=== PATIENT | female | born 1980 | race Asian ===

== ENCOUNTER 2021-02-14 17:53 | Emergency (ER) | payer OTHER, SELFPAY ==
[2021-02-14] VITALS (14 sets, daily range): BP systolic 183–220; BP diastolic 86–120; PULSE 74–96; RESP 14–29; TEMP 36.7; O2SAT 94–99; BMI 44.2
--- NOTE | 2021-02-14 18:53 | DI.RAD.S_ITS ---
PROCEDURE: XR CHEST 1V INDICATIONS: Chest pain TECHNIQUE: One view of the chest was acquired. COMPARISON: None. FINDINGS: Surgical changes and devices: None. Lungs and pleura: Lungs are clear. No pleural effusions or pneumothorax. Mediastinum: Mediastinal contours appear normal. Heart size is normal. Bones and chest wall: No suspicious bony lesions. Overlying soft tissues appear unremarkable. IMPRESSION: No acute cardiopulmonary process demonstrated radiographically. Dictated by: Nathan Moody M.D. on 02/14/2021 at 19:16 Approved by: Nathan Moody M.D. on 02/14/2021 at 19:16
--- NOTE | 2021-02-14 19:04 | ED_ITS ---
HPI - General Adult General Chief complaint: Hypertension Stated complaint: High Blood Pressure Time Seen by Provider: 02/14/21 19:04 Source: patient Mode of arrival: Ambulatory Limitations: no limitations History of Present Illness HPI narrative: 40-year-old woman with a history of hypertension but she has not taken any blood pressure medications for an extended period of time. She is not sure when she last saw her doctor, Dr. Almazan, had routine blood work or last took any meds. She was having a routine medical screening exam at her work, tried and seafood, and was found to be significantly hypertensive 220/110 on 1 side and 220/100 on the other side. She is otherwise asymptomatic with this she describes occasional headaches but nothing that seems to specifically bother her. She has had no chest pain, palpitations, exertional dyspnea, orthopnea, increased lower extremity edema. She does not know if she has gained weight and does not know when the last time she weighed herself was. She has had no nausea, vomiting, diarrhea, numbness or tingling. Blood pressure remains significantly elevated on arrival in the emergency room and she remains asymptomatic. Related Data Home Medications Medication Instructions Recorded Confirmed cholecalciferol (vitamin D3) 50 2,000 unit PO QDAY #0 04/04/17 mcg (2,000 unit) capsule (Vitamin D3) hydrochlorothiazide 25 mg tablet 25 mg PO QDAY #0 04/04/17 lisinopril 40 mg tablet 40 mg PO QDAY #0 04/04/17 multivitamin-iron 9 mg-folic acid 1 tab PO QDAY #0 04/04/17 400 mcg-calcium and minerals tablet (Thera M Plus (ferrous fumarate)) Previous Rx's Medication Instructions Recorded lisinopril 20 2 tab PO DAILY 30 Days #60 tab 02/14/21 mg-hydrochlorothiazide 12.5 mg tablet Allergies Allergy/AdvReac Type Severity Reaction Status Date / Time No Known Drug Allergies Allergy Verified 02/14/21 18:24 Review of Systems Review of Systems Narrative: Remainder of complete review of systems is otherwise unremarkable except for that included in the HPI. Patient History Social History Smoking Status: Unknown if ever smoked Smoking Status: Unknown if ever smoked alcohol intake frequency: holidays/special occasions only Substance Use Type: does not use Exam Narrative Exam Narrative: General: Healthy appearing, in no acute distress. Able to give a complete and coherent history. Well-nourished well-developed HEENT: Moist mucous membranes, normal sclera with reactive pupils, Neck: No JVD, supple Respiratory: Lungs are clear to auscultation, no wheezing no rales no rhonchi. Full and symmetrical air movement Cardiac: Regular rate and rhythm no murmurs no bruits Abdomen: Soft, nontender, good bowel tones, no flank pain Skin: Warm and dry, no rashes Neurologic: Grossly neurologically intact with no obvious asymmetries or abnormalities Extremities: No trauma, well perfused Psych: Cooperative, appropriate affect but poor overall inside Initial Vital Signs Initial Vital Signs: Vital Signs Temperature 98.1 F 02/14/21 18:24 Pulse Rate 80 02/14/21 18:24 Respiratory Rate 14 02/14/21 18:24 Blood Pressure 192/120 H 02/14/21 18:24 Pulse Oximetry 98 02/14/21 18:24 Course Orders Ordered: ED Orders 02/14/21 18:53 XR chest 1V Stat EKG-12 Lead Stat 02/14/21 19:35 Complete Blood Count AUTO DIFF Stat Comprehensive Metabolic Panel Stat Lipase Stat Magnesium Stat Troponin & CK Cardiac Panel Stat Discontinued Medications COVID-19 Vacc Ad26-S Recombinant (JSN) (PF) (Covid-19 Vacc, Ad26(Pete)/Pf 0.5 Ml) 0.5 ml IM .ONCE ONE Stop: 02/14/21 19:32 Last Admin: 02/14/21 19:50 Dose: Not Given Documented by: SHANTA Hydralazine HCl (Hydralazine 20 Mg/Ml Vial) 20 mg IM NOW ONE Stop: 02/14/21 20:53 Last Admin: 02/14/21 21:26 Dose: 20 mg Documented by: GEO Hydrochlorothiazide (Hydrochlorothiazide 25 Mg Tablet) 25 mg PO NOW ONE Stop: 02/14/21 19:30 Last Admin: 02/14/21 19:57 Dose: 25 mg Documented by: SHANTA Lisinopril (Lisinopril 20 Mg Tablet) 40 mg PO NOW ONE Stop: 02/14/21 19:30 Last Admin: 02/14/21 19:57 Dose: 40 mg Documented by: SHANTA Vital Signs Vital signs: Vital Signs - 8 hr 02/14/21 19:30 02/14/21 19:57 02/14/21 20:00 Pulse Rate 84 85 85 Respiratory Rate 29 H 26 H Blood Pressure 213/118 H Pulse Oximetry 99 99 02/14/21 20:14 02/14/21 20:17 02/14/21 20:30 Pulse Rate 79 77 75 Respiratory Rate 23 22 Blood Pressure 200/104 H 200/104 H 200/113 H Pulse Oximetry 98 99 98 02/14/21 21:00 02/14/21 21:21 02/14/21 21:22 Pulse Rate 74 96 H 91 H Respiratory Rate 23 26 H Blood Pressure 195/100 H 220/113 H Pulse Oximetry 98 94 96 02/14/21 21:30 02/14/21 22:00 02/14/21 22:27 Pulse Rate 78 89 95 H Respiratory Rate 24 25 H 16 Blood Pressure 212/109 H 183/92 H 185/86 H Pulse Oximetry 98 98 97 Medical Decision Making Lab Data Result diagrams: 02/14/21 19:35 02/14/21 19:35 Labs: Lab Results 02/14/21 02/14/21 Range/Units 19:35 19:35 WBC 11.3 H (4.5-11.0) X10^3/uL RBC 4.85 (4.0-5.2) X10^6/uL Hgb 11.0 L (12.0-16.0) g/dL Hct 35.4 L (36-46) % MCV 73.0 L (80-100) fL MCH 22.7 L (26-34) PG MCHC 31.1 (30-36) % RDW 16.0 H (11.6-14.8) % Plt Count 317 (150-400) X10^3/uL Neut % (Auto) 66.7 (50-75) % Lymph % (Auto) 23.9 L (25-40) % [place] % (Auto) 5.4 (3-14) % Eos % (Auto) 3.3 (2-4) % Baso % (Auto) 0.7 (0-2) % Neut # (Auto) 7500 H (4010-6228) /uL Lymph # (Auto) 2700 (7352-8997) /uL [place] # (Auto) 600 (0-900) /uL Eos # (Auto) 400 (0-450) /uL Baso # (Auto) 100 (0-100) /uL Sodium 137 (137-145) mmol/L Potassium 3.7 (3.4-5.1) mmol/L Chloride 102 (98-107) mmol/L Carbon Dioxide 27 (22-32) mmol/L BUN 12 (7-17) mg/dL Creatinine 0.67 (0.52-1.04) mg/dL Estimated GFR > 60.0 (>60) mL/min BUN/Creatinine Ratio 17.9 (6-22) Glucose 111 H (70-100) mg/dL Calcium 8.7 (8.4-10.2) mg/dL Magnesium 2.0 (1.6-2.3) mg/dL Total Bilirubin 0.6 (0.2-1.3) mg/dL AST 40 H (14-36) IU/L ALT 40 H (<35) IU/L Alkaline Phosphatase 82 (38-126) U/L Total Creatine Kinase 113 (30-135) U/L CK-MB (CK-2) 1.00 (<2.37) ng/mL CK-MB (CK-2) Rel Index 0.9 L (1.5-5.0) % Troponin I < 0.012 (0.01-0.034) ng/mL Total Protein 7.5 (6.3-8.2) g/dL Albumin 4.1 (3.5-5.0) g/dL Globulin 3.4 (1.7-4.1) g/dL Albumin/Globulin Ratio 1.2 (1.0-2.8) Lipase 38 (23-300) U/L Imaging Data Chest x-ray: Radiologist's Impression: FINDINGS: Surgical changes and devices: None. Lungs and pleura: Lungs are clear. No pleural effusions or pneumothorax. Mediastinum: Mediastinal contours appear normal. Heart size is normal. Bones and chest wall: No suspicious bony lesions. Overlying soft tissues appear unremarkable. IMPRESSION: No acute cardiopulmonary process demonstrated radiographically. Dictated by: Nathan Moody M.D. on 02/14/2021 at 19:16 ECG Data Interpretation: Sinus rhythm at a rate of 81 Normal intervals, normal axis No significant left ventricular hypertrophy pattern No acute ischemic changes MDM Narrative Medical decision making narrative: 40-year-old woman with a history of hypertension has not medications for number of months. Was noted to have fairly dramatic and completely asymptomatic hypertension with a screening test done at work. She comes in today at request from her work for further evaluation. No neurologic pulmonary or cardiac symptoms. She is given 40 mg of lisinopril, 25 mg of hydrochlorothiazide and 20 mg of IM hydralazine. There is no evidence of stroke or acute coronary syndrome. Blood pressure was beginning to trend down. She tolerated the medications well. She is discharged home with instructions to start 40 mg of lisinopril and 25 mg of hydrochlorothiazide daily. Asked her to keep track of her blood pressure readings and follow-up with Dr. Almazan. Reiterated the importance of keeping her blood pressure controlled to avoid long-term consequences including heart attack, stroke and renal failure. Questions are answered and she is safe for home discharge Discharge Plan Departure Patient Disposition: Home Clinical Impression: Hypertension Qualifiers: Hypertension type: primary hypertension Qualified Code(s): I10 - Essential (primary) hypertension Instructions: DI for High Blood Pressure Activity Restrictions/Additional Instructions: Thank you for coming in today Your blood pressure was dangerously high. You need to be back on your blood pressure medications. In the emergency room I restarted the lisinopril at 40 mg and hydrochlorothiazide at 25 mg. You had no symptoms of a stroke, no sign of a heart attack on your EKG and her blood work was reassuring. You need to schedule an appointment with Dr. Almazan to follow-up on your blood pressure. I have given you a prescription for a combination pill of lisinopril 20 mg and hydrochlorothiazide 12.5 mg. You will need to take 2 of these every morning. Please continue to take the blood pressure medication daily. It would be very helpful for Dr. Almazan if you are able to take your blood pressure at least a couple of times a week so we can tell how your body is responding to restarting the blood pressure medication Thank you for letting us give you your COVID shot today Prescriptions: New lisinopril-hydrochlorothiazide 20-12.5 mg tablet 2 tab PO DAILY 30 Days Qty: 60 RF: 3 No Action lisinopril 40 MG tablet 40 mg PO QDAY Qty: 0 RF: 0 hydrochlorothiazide 25 MG tablet 25 mg PO QDAY Qty: 0 RF: 0 cholecalciferol (vitamin D3) [Vitamin D3] 2,000 UNIT capsule 2,000 unit PO QDAY Qty: 0 RF: 0 [id number]-calcium-mins [Thera M Plus (ferrous fumarat)] 1 EACH tablet 1 tab PO QDAY Qty: 0 RF: 0 Referrals: Isabella Almazan MD [Primary Care Provider] -
[2021-02-14 19:43] LABS: Add Manual Diff / Slide Review NO; Basophils Absolute Auto 100 /uL (0-100); Basophils Percent Auto 0.7 % (0-2); Eosinophils Absolute Auto 400 /uL (0-450); Eosinophils Percent Auto 3.3 % (2-4); Hematocrit 35.4 % (36-46); Lymphocytes Absolute Auto 2700 /uL (1100-4500); Lymphocytes Percent Auto 23.9 % (25-40); Mean Corpuscular HGB Conc 31.1 % (30-36); Mean Corpuscular Hemoglobin 22.7 PG (26-34); Monocytes Absolute Auto 600 /uL (0-900); Monocytes Percent Auto 5.4 % (3-14); Neutrophils Absolute Auto 7500 /uL (1500-7000); Neutrophils Percent Auto 66.7 % (50-75); Platelet Count 317 X10^3/uL (150-400); Red Blood Cell Count 4.85 X10^6/uL (4.0-5.2); White Blood Cell Count 11.3 X10^3/uL (4.5-11.0)
[2021-02-14 19:55] LABS: Alanine Aminotransferase 40 IU/L (<35); Albumin 4.1 g/dL (3.5-5.0); Albumin Globulin Ratio 1.2 (1.0-2.8); Alkaline Phosphatase 82 U/L (38-126); Aspartate Aminotransferase 40 IU/L (14-36); BUN Creatinine Ratio 17.9 (6-22); Bilirubin Total 0.6 mg/dL (0.2-1.3); Blood Urea Nitrogen 12 mg/dL (7-17); Calcium 8.7 mg/dL (8.4-10.2); Carbon Dioxide 27 mmol/L (22-32); Chloride 102 mmol/L (98-107); Creatine Kinase 113 U/L (30-135); Estimated Glomerular Filt Rate > 60.0 mL/min (>60); Globulin 3.4 g/dL (1.7-4.1); Glucose 111 mg/dL (70-100); HEMOLYSIS < 15 (0-50); Lipase 38 U/L (23-300); Potassium 3.7 mmol/L (3.4-5.1); Sodium 137 mmol/L (137-145); Total Protein 7.5 g/dL (6.3-8.2)
[2021-02-14] MEDS: lisinopriL 20 MG TABLET 40 MG PO (19:57)
[2021-02-14] MEDS: hydroCHLOROthiazide 25 MG TABLET PO (19:57)
[2021-02-14 20:07] LABS: Troponin I < 0.012 ng/mL (0.01-0.034)
[2021-02-14 20:10] LABS: CKMB % Relative Index 0.9 % (1.5-5.0)
[2021-02-14] MEDS: HYDRALAZINE 20 MG/ML VIAL IM (21:26)
== END 2021-02-14 22:30 | disposition home or self-care (01) ==
PROVIDERS: Emergency Provider Emergency Medicine; Family Provider Family Medicine; PCP Family Medicine
DX: I10 Essential (primary) hypertension (principal); R07.9 Chest pain, unspecified
CPT/HCPCS: 36415; 71045; 80053; 82550; 82553; 83690; 83735; 84484; 85025; 93005; 93010; 96372; 99284; J0360

== ENCOUNTER → 2022-05-26 11:51 | Outpatient (CLI) | payer OTHER, SELFPAY ==
--- NOTE | 2022-05-26 11:57 | DI.RAD.S_ITS ---
PROCEDURE: XR CHEST 2V INDICATIONS: ACUTE COUGH TECHNIQUE: 2 views of the chest were acquired. COMPARISON: [facility], , XR CHEST 1V, 02/14/2021, 18:55. FINDINGS: Surgical changes and devices: None. Lungs and pleura: Lungs are clear. No pleural effusions or pneumothorax. Mediastinum: Mediastinal contours are normal. Heart size is stable. Bones and chest wall: No suspicious bony abnormalities. Soft tissues appear unremarkable. IMPRESSION: No acute cardiopulmonary abnormality. Approved by: Cortez De León M.D. on 05/26/2022 at 12:17
== END ==
PROVIDERS: Family Provider Family Medicine; PCP Family Medicine; Referring Provider Registered Nurse; Visit Provider Registered Nurse
DX: R05.1 Acute cough (principal)
CPT/HCPCS: 71046

== ENCOUNTER 2022-09-07 11:18 | Observation (INO) | payer OTHER, SELFPAY ==
[2022-09-07] VITALS (50 sets, daily range): BP systolic 138–222; BP diastolic 75–122; PULSE 89–121; RESP 18–36; TEMP 37.2; O2SAT 87–100; BMI 40.4
[2022-09-07] MEDS: ALBUTEROL/IPRATROPIUM 3 ML AMPUL INH ×3 (11:26→11:51)
--- NOTE | 2022-09-07 11:28 | DI.RAD.S_ITS ---
PROCEDURE: XR CHEST 1V INDICATIONS: Shortness of breath TECHNIQUE: One view of the chest was acquired. COMPARISON: [facility], CR, XR CHEST 2V, 05/26/2022, 12:03. FINDINGS: Surgical changes and devices: None. Lungs and pleura: Lungs are clear. No pleural effusions or pneumothorax. Mediastinum: Mediastinal contours appear normal. Heart size is normal. Bones and chest wall: No suspicious bony lesions. Overlying soft tissues appear unremarkable. IMPRESSION: No evidence acute pulmonary process. Dictated by: Phillip Acevedo M.D. on 09/07/2022 at 12:01 Approved by: Phillip Acevedo M.D. on 09/07/2022 at 12:01
--- NOTE | 2022-09-07 11:33 | ED.SOB ---
HPI - SOB/Dyspnea General Chief Complaint: Shortness of Breath/Dyspnea Stated Complaint: Asthma Time Seen by Provider: 09/07/22 11:26 Source: patient Mode of arrival: Ambulatory Limitations: no limitations History of Present Illness HPI Narrative: This is a 41-year-old female with history of hypertension and asthma. Patient presents with complaint of shortness of breath. She denies cold, cough or congestion recently. No fevers. She has tightness in her chest. Denies any pain. No nausea or vomiting no other GI or urinary symptoms. No new swelling in extremities. Patient states she may have been hospitalized once before she states it was here but I do not have that available in our system. She does have 1 prior visit for hypertension in the past. Patient takes lisinopril, hydrochlorothiazide and uses albuterol as her home medications. She is been using her inhaler. She is not on a steroid inhaler. She does not recall being on any oral steroids in the past. She denies any prior intubations. No tobacco, alcohol or illicit. She states her only prior surgeries are . Patient gives majority of history herself but has family that also supplements history at bedside. Related Data Home Medications Medication Instructions Recorded Confirmed cholecalciferol (vitamin D3) 50 2,000 unit PO QDAY ##0 04/04/17 mcg (2,000 unit) capsule (Vitamin D3) hydrochlorothiazide 25 mg tablet 25 mg PO QDAY ##0 04/04/17 lisinopril 40 mg tablet 40 mg PO QDAY ##0 04/04/17 multivitamin-iron 9 mg-folic acid 1 tab PO QDAY ##0 04/04/17 400 mcg-calcium and minerals tablet (Thera M Plus (ferrous fumarate)) Previous Rx's Medication Instructions Recorded lisinopril 20 2 tab PO DAILY 1 month #60 tabs 02/14/ mg-hydrochlorothiazide 12.5 mg tablet Allergies Allergy/AdvReac Type Severity Reaction Status Date / Time No Known Drug Allergies Allergy Verified 09/07/22 11:30 Review of Systems Review of Systems ROS Unobtainable: All systems reviewed & are unremarkable except as noted in HPI and below Patient History Social History Smoking Status: Unknown if ever smoked Smoking Status: Unknown if ever smoked alcohol intake frequency: holidays/special occasions only Substance Use Type: does not use Exam Narrative Exam Narrative: GEN: well nourished, well appearing e-mail, alert and oriented x 3, patient appears to be in mild distress. HEENT: Atraumatic, pupils are equal round reactive to light, extraocular movements are intact, nares are clear, there is no conjunctival pallor. Throat is clear without any exudates, erythema, tonsillar enlargement or uvular deviation HEART: Regular rate and rhythm without murmur, clicks, rubs. Pulses are equal in upper and lower extremities LUNGS:Lungs decreased posteriorly, patient has expiratory wheeze bilaterally, tachypnea, patient is able to speak in 3 or 4 word sentences, no rales, crackles, chest moves symmetrically ABD:bowel sounds normal, soft, non-tender, no guarding, rebound, rigidity, no masses noted, no hepatosplenomegaly :No CVA tenderness MSCL: Non-tender, no muscle atrophy, muscles strength 5/5 upper and lower extremities, full range of motion, normal gait NEURO:CN 2-12 intact, sensation normal Initial Vital Signs Initial Vital Signs: Vital Signs Pulse Oximetry 88 L 09/07/22 11:23 Course Orders Ordered: ED Orders 09/07/22 11:28 XR chest 1V Stat Measure peak expiratory flow ONCE RT Consult Eval and Treat NOW 09/07/22 11:30 COVID19 -Nasal RAPID Stat Complete Blood Count AUTO DIFF Stat Comprehensive Metabolic Panel Stat D Dimer Stat Lactate (Lactic Acid) Stat NT-proBNP (BNP-Adult 18+) Stat Prothrombin Time INR Stat Troponin I Stat 09/07/22 12:30 EKG-12 Lead Stat 09/07/22 13:45 Respiratory Panel (Film Array) Stat Acetaminophen (Acetaminophen 325 Mg Tablet) 650 mg PO Q6H PRN PRN Reason: Fever/Mild Pain (1-3) Hydrocodone Bitart/Acetaminophen (Hydrocodone/Acet 5/325 Tablet) 1 tab PO Q4H PRN PRN Reason: Pain, Moderate (4-6) Albuterol/Ipratropium (Albuterol/Ipratropium 3 Ml Ampul) 3 ml INH RTQ4HR PRN PRN Reason: Shortness Of Breath Amlodipine Besylate (Amlodipine 5 Mg Tablet) 10 mg PO DAILY CRISTINO Enoxaparin Sodium (Enoxaparin 40 Mg/0.4 Ml Syringe) 40 mg SUBCUT DAILY [facility] Hydralazine HCl (Hydralazine 20 Mg/Ml Vial) 10 mg IV Q6HR PRN PRN Reason: Hypertension SBP >160 Metformin HCl (Metformin Hcl 500 Mg Tablet) 500 mg PO 0800,1700 [facility] Naloxone HCl (Naloxone 0.4 Mg/Ml Vial) 0.2 mg IV Q2MIN PRN PRN Reason: Opiate Reversal Prednisone (Prednisone 20 Mg Tablet) 40 mg PO DAILY CRISTINO Discontinued Medications Albuterol (Albuterol 2.5 Mg/3 Ml Neb (Adult)) 20 mg INH NOW ONE Stop: 09/07/22 12:33 Last Admin: 09/07/22 12:39 Dose: 20 mg Documented By: SAT Albuterol (Albuterol 2.5 Mg/3 Ml Neb (Adult)) 5 mg INH NOW ONE Stop: 09/07/22 15:23 Last Admin: 09/07/22 15:24 Dose: 5 mg Documented By: NL Albuterol/Ipratropium (Albuterol/Ipratropium 3 Ml Ampul) 3 ml INH Q20M CRISTINO Stop: 09/07/22 12:11 Last Admin: 09/07/22 11:51 Dose: 3 ml Documented By: Admin: 09/07/22 11:38 Dose: 3 ml Documented By: Admin: 09/07/22 11:26 Dose: 3 ml Documented By: ANASTASIA Methylprednisolone (Methylprednisolone 125 Mg/2 Ml Vial) 125 mg IV NOW ONE Stop: 09/07/22 11:34 Last Admin: 09/07/22 11:48 Dose: 125 mg Documented By: CTS Vital Signs Vital signs: Vital Signs - 8 hr 09/07/22 11:26 09/07/22 11:23 09/07/22 11:24 Temperature 98.9 F Pulse Rate 107 H Respiratory Rate 36 H Blood Pressure 186/110 H 186/110 H Pulse Oximetry 87 L 88 L Oxygen Delivery Method Room Air 09/07/22 11:24 09/07/22 11:30 09/07/22 11:25 Temperature Pulse Rate 105 H 95 H 92 H Respiratory Rate 24 Blood Pressure Pulse Oximetry 91 97 92 Oxygen Delivery Method Room Air 09/07/22 11:38 09/07/22 11:51 09/07/22 12:28 Temperature Pulse Rate 89 94 H Respiratory Rate 24 24 Blood Pressure 192/110 H Pulse Oximetry 98 97 Oxygen Delivery Method Room Air Room Air 09/07/22 11:30 09/07/22 11:45 09/07/22 11:45 Temperature Pulse Rate 93 H Respiratory Rate Blood Pressure 187/116 H 185/118 H Pulse Oximetry 97 Oxygen Delivery Method 09/07/22 12:00 09/07/22 12:00 09/07/22 12:15 Temperature Pulse Rate 93 H 100 H Respiratory Rate Blood Pressure 192/122 H Pulse Oximetry 100 97 Oxygen Delivery Method 09/07/22 12:15 09/07/22 12:27 09/07/22 12:27 Temperature Pulse Rate 103 H Respiratory Rate Blood Pressure 222/106 H 192/110 H Pulse Oximetry 93 Oxygen Delivery Method 09/07/22 12:30 09/07/22 12:30 09/07/22 12:45 Temperature Pulse Rate 105 H 90 Respiratory Rate Blood Pressure 183/109 H Pulse Oximetry 94 95 Oxygen Delivery Method 09/07/22 12:45 09/07/22 13:00 09/07/22 13:00 Temperature Pulse Rate 105 H Respiratory Rate Blood Pressure 170/106 H 182/110 H Pulse Oximetry 93 Oxygen Delivery Method 09/07/22 13:15 09/07/22 13:15 09/07/22 13:30 Temperature Pulse Rate 100 H Respiratory Rate Blood Pressure 181/108 H 186/111 H Pulse Oximetry 100 Oxygen Delivery Method 09/07/22 13:30 09/07/22 13:45 09/07/22 13:45 Temperature Pulse Rate 109 H 109 H Respiratory Rate 24 Blood Pressure 185/99 H Pulse Oximetry 100 100 Oxygen Delivery Method 09/07/22 14:00 09/07/22 14:00 09/07/22 15:20 Temperature Pulse Rate 115 H 121 H Respiratory Rate 31 H Blood Pressure 176/93 H Pulse Oximetry 100 89 L Oxygen Delivery Method 09/07/22 15:24 Temperature Pulse Rate 114 H Respiratory Rate 24 Blood Pressure Pulse Oximetry 94 Oxygen Delivery Method Room Air MDM - SOB/Dyspnea Lab Data 09/07/22 11:30 09/07/22 11:30 Labs: Lab Results 09/07/22 09/07/22 09/07/22 Range/Units 11:30 11:30 11:30 WBC 13.8 H (4.5-11.0) X10^3/uL RBC 5.11 (4.0-5.2) X10^6/uL Hgb 11.7 L (12.0-16.0) g/dL Hct 37.6 (36-46) % MCV 73.6 L (80-100) fL MCH 22.8 L (26-34) PG MCHC 31.0 (30-36) % RDW 16.5 H (11.6-14.8) % Plt Count 369 (150-400) X10^3/uL Neut % (Auto) 71.2 (50-75) % Lymph % (Auto) 18.0 L (25-40) % [place] % (Auto) 4.0 (3-14) % Eos % (Auto) 5.8 H (2-4) % Baso % (Auto) 1.0 (0-2) % Neut # (Auto) 9900 H (7350-8244) /uL Lymph # (Auto) 2500 (3499-6277) /uL [place] # (Auto) 500 (0-900) /uL Eos # (Auto) 800 H (0-450) /uL Baso # (Auto) 100 (0-100) /uL PT 11.5 (10.1-12.7) SECONDS INR 1.0 (0.9-1.3) D-Dimer (<500) ng/ml Sodium 136 L (137-145) mmol/L Potassium 3.7 (3.4-5.1) mmol/L Chloride 101 (98-107) mmol/L Carbon Dioxide 27 (22-32) mmol/L BUN 9 (7-17) mg/dL Creatinine 0.54 (0.52-1.04) mg/dL Estimated GFR > 60 (>60) mL/min BUN/Creatinine Ratio 16.7 (6-22) Glucose 160 H (70-100) mg/dL Lactate (0.7-2.1) mmol/L Calcium 8.5 (8.4-10.2) mg/dL Total Bilirubin 0.3 (0.2-1.3) mg/dL AST 26 (14-36) IU/L ALT 38 H (<35) IU/L Alkaline Phosphatase 104 (38-126) U/L Troponin I < 0.012 (0.01-0.034) ng/mL NT-Pro-B Natriuret Pep 14 (<125) pg/mL Total Protein 8.3 H (6.3-8.2) g/dL Albumin 4.3 (3.5-5.0) g/dL Globulin 4.0 (1.7-4.1) g/dL Albumin/Globulin Ratio 1.1 (1.0-2.8) Chlamy pneumoniae PCR (Not Detect) Adenovirus (PCR) (Not Detect) B. pertussis DNA (PCR) (Not Detecte) B.parapertussis DNA PCR (Not Detecte) Coronavirus OC43 (PCR) (Not Detect) Coronavirus HKU1 (PCR) (Not Detect) Coronavirus 229E (PCR) (Not Detect) SARS-CoV-2 (PCR) (Negative) Coronavirus NL63 (PCR) (Not Detect) Human Metapneumovir PCR (Not Detect) Influenza Type A (PCR) (Not Detect) Influenza Type B (PCR) (Not Detect) M. pneumoniae (PCR) (Not Detect) Parainfluenza 1 (PCR) (Not Detect) Parainfluenza 2 (PCR) (Not Detect) Parainfluenza 3 (PCR) (Not Detect) Parainfluenza 4 (PCR) (Not Detect) RSV (PCR) (Not Detect) Entero/Rhino (PCR) (Not Detect) 09/07/22 09/07/22 09/07/22 Range/Units 11:30 11:30 11:30 WBC (4.5-11.0) X10^3/uL RBC (4.0-5.2) X10^6/uL Hgb (12.0-16.0) g/dL Hct (36-46) % MCV (80-100) fL MCH (26-34) PG MCHC (30-36) % RDW (11.6-14.8) % Plt Count (150-400) X10^3/uL Neut % (Auto) (50-75) % Lymph % (Auto) (25-40) % [place] % (Auto) (3-14) % Eos % (Auto) (2-4) % Baso % (Auto) (0-2) % Neut # (Auto) (8084-7132) /uL Lymph # (Auto) (5776-1329) /uL [place] # (Auto) (0-900) /uL Eos # (Auto) (0-450) /uL Baso # (Auto) (0-100) /uL PT (10.1-12.7) SECONDS INR (0.9-1.3) D-Dimer 398 (<500) ng/ml Sodium (137-145) mmol/L Potassium (3.4-5.1) mmol/L Chloride (98-107) mmol/L Carbon Dioxide (22-32) mmol/L BUN (7-17) mg/dL Creatinine (0.52-1.04) mg/dL Estimated GFR (>60) mL/min BUN/Creatinine Ratio (6-22) Glucose (70-100) mg/dL Lactate 1.6 (0.7-2.1) mmol/L Calcium (8.4-10.2) mg/dL Total Bilirubin (0.2-1.3) mg/dL AST (14-36) IU/L ALT (<35) IU/L Alkaline Phosphatase (38-126) U/L Troponin I (0.01-0.034) ng/mL NT-Pro-B Natriuret Pep (<125) pg/mL Total Protein (6.3-8.2) g/dL Albumin (3.5-5.0) g/dL Globulin (1.7-4.1) g/dL Albumin/Globulin Ratio (1.0-2.8) Chlamy pneumoniae PCR (Not Detect) Adenovirus (PCR) (Not Detect) B. pertussis DNA (PCR) (Not Detecte) B.parapertussis DNA PCR (Not Detecte) Coronavirus OC43 (PCR) (Not Detect) Coronavirus HKU1 (PCR) (Not Detect) Coronavirus 229E (PCR) (Not Detect) SARS-CoV-2 (PCR) Negative (Negative) Coronavirus NL63 (PCR) (Not Detect) Human Metapneumovir PCR (Not Detect) Influenza Type A (PCR) (Not Detect) Influenza Type B (PCR) (Not Detect) M. pneumoniae (PCR) (Not Detect) Parainfluenza 1 (PCR) (Not Detect) Parainfluenza 2 (PCR) (Not Detect) Parainfluenza 3 (PCR) (Not Detect) Parainfluenza 4 (PCR) (Not Detect) RSV (PCR) (Not Detect) Entero/Rhino (PCR) (Not Detect) 09/07/22 Range/Units 13:45 WBC (4.5-11.0) X10^3/uL RBC (4.0-5.2) X10^6/uL Hgb (12.0-16.0) g/dL Hct (36-46) % MCV (80-100) fL MCH (26-34) PG MCHC (30-36) % RDW (11.6-14.8) % Plt Count (150-400) X10^3/uL Neut % (Auto) (50-75) % Lymph % (Auto) (25-40) % [place] % (Auto) (3-14) % Eos % (Auto) (2-4) % Baso % (Auto) (0-2) % Neut # (Auto) (2169-8880) /uL Lymph # (Auto) (1808-8378) /uL [place] # (Auto) (0-900) /uL Eos # (Auto) (0-450) /uL Baso # (Auto) (0-100) /uL PT (10.1-12.7) SECONDS INR (0.9-1.3) D-Dimer (<500) ng/ml Sodium (137-145) mmol/L Potassium (3.4-5.1) mmol/L Chloride (98-107) mmol/L Carbon Dioxide (22-32) mmol/L BUN (7-17) mg/dL Creatinine (0.52-1.04) mg/dL Estimated GFR (>60) mL/min BUN/Creatinine Ratio (6-22) Glucose (70-100) mg/dL Lactate (0.7-2.1) mmol/L Calcium (8.4-10.2) mg/dL Total Bilirubin (0.2-1.3) mg/dL AST (14-36) IU/L ALT (<35) IU/L Alkaline Phosphatase (38-126) U/L Troponin I (0.01-0.034) ng/mL NT-Pro-B Natriuret Pep (<125) pg/mL Total Protein (6.3-8.2) g/dL Albumin (3.5-5.0) g/dL Globulin (1.7-4.1) g/dL Albumin/Globulin Ratio (1.0-2.8) Chlamy pneumoniae PCR Not detected (Not Detect) Adenovirus (PCR) Not detected (Not Detect) B. pertussis DNA (PCR) Not detected (Not Detecte) B.parapertussis DNA PCR Not detected (Not Detecte) Coronavirus OC43 (PCR) Not detected (Not Detect) Coronavirus HKU1 (PCR) Not detected (Not Detect) Coronavirus 229E (PCR) Not detected (Not Detect) SARS-CoV-2 (PCR) Not detected (Negative) Coronavirus NL63 (PCR) Not detected (Not Detect) Human Metapneumovir PCR Not detected (Not Detect) Influenza Type A (PCR) Not detected (Not Detect) Influenza Type B (PCR) Not detected (Not Detect) M. pneumoniae (PCR) Not detected (Not Detect) Parainfluenza 1 (PCR) Not detected (Not Detect) Parainfluenza 2 (PCR) Not detected (Not Detect) Parainfluenza 3 (PCR) Not detected (Not Detect) Parainfluenza 4 (PCR) Not detected (Not Detect) RSV (PCR) Not detected (Not Detect) Entero/Rhino (PCR) Not detected (Not Detect) Imaging Data Chest x-ray: Radiologist's Impression: Close Chest X-Ray (Signed) Phillip Acevedo - 09/07/22 Chest X-Ray (Signed) Cortez De León - 05/26/22 Chest X-Ray (Signed) Nathan Moody - 02/14/21 Launch?[address] [address] XRay Report Signed Patient: Santa Newman MR#: [id number] : 1980 Acct:[id number] Age/Sex: 41 / F Date of Service: 09/07/22 Loc: ED Accession Number: [id number] ?? Procedure: XR chest 1V Ordering Provider: Melvi Yanez D.O. PROCEDURE:? XR CHEST 1V ? INDICATIONS:? Shortness of breath ? TECHNIQUE:? One view of the chest was acquired.? ? COMPARISON:? [facility], , XR CHEST 2V, 05/26/2022, 12:03. ? FINDINGS:? ? Surgical changes and devices:? None.? ? Lungs and pleura:? Lungs are clear.? No pleural effusions or pneumothorax.? ? Mediastinum:? Mediastinal contours appear normal.? Heart size is normal.? ? Bones and chest wall:? No suspicious bony lesions.? Overlying soft tissues appear unremarkable.? ? IMPRESSION:? No evidence acute pulmonary process. ? ? ? Dictated by: Phillip Acevedo M.D. on 09/07/2022 at 12:01 ? ? Approved by: Phillip Acevedo M.D. on 09/07/2022 at 12:01?? ECG Data Attestation: I personally reviewed and interpreted this ECG as follows: Prior ECG tracings: available for review Interpretation: Sinus tachycardia rate of 110 FL 146 QRS is [address] QTC [address] No acute ST elevation depression noted. Patient has Q-wave in 2 and 3. Patient has prior from 02/14/2021 which appears similar. MDM Narrative Medical decision making narrative: This is a 41-year-old female with known history of asthma and hypertension who presents with wheezing, shortness of breath that has been lasting for the past day. Patient received DuoNeb x3 from , [facility] and on re-evaluation still has wheeze and shortness of breath with some tachypnea. She will receive 20 mg albuterol neb in department patient's BA use did improve. Patient's workup including chest x-ray, COVID, CBC, CMP troponin and BNP does not show clear exacerbating factor. Dimer was negative. Patient had respiratory panel sent and is negative. Patient has had persistent wheeze, tachypnea and was hypoxic upon arrival and on ambulation trial desatted to 87% and became quite dyspneic and tachypneic again. Magnesium was added, patient was given an additional neb. I spoke with Dr. Lopez who accepts for admission for asthma exacerbation. Critical Care Time Critical Care Time Critical Care Time: Yes Total Critical Care Time: 35 Attestation: The high probability of a clinically significant, sudden or life threatening deterioration of the [pulm, cardiac] system(s) required my full and direct attention, intervention and personal management. The aggregate critical care time was [] minutes. This time is in addition to time spent performing reported procedures but includes the following: [x] Data Review and interpretation [x] Patient assessment and monitoring of vital signs [x] Documentation [x] Medication orders and management Discharge Plan Departure Patient Disposition: Admitted as Observation Clinical Impression: Chronic asthma with acute exacerbation Admit Date/Time: 09/07/22 15:40 Admit Provider: Yinka Lopez
[2022-09-07 11:39] LABS: Add Manual Diff / Slide Review NO; Basophils Absolute Auto 100 /uL (0-100); Eosinophils Absolute Auto 800 /uL (0-450); Eosinophils Percent Auto 5.8 % (2-4); Hematocrit 37.6 % (36-46); Hemoglobin 11.7 g/dL (12.0-16.0); Lymphocytes Absolute Auto 2500 /uL (1100-4500); Mean Corpuscular Hemoglobin 22.8 PG (26-34); Mean Corpuscular Volume 73.6 fL (80-100); Monocytes Absolute Auto 500 /uL (0-900); Neutrophils Absolute Auto 9900 /uL (1500-7000); Neutrophils Percent Auto 71.2 % (50-75); Platelet Count 369 X10^3/uL (150-400); Red Blood Cell Count 5.11 X10^6/uL (4.0-5.2); Red Cell Distribution Width 16.5 % (11.6-14.8); White Blood Cell Count 13.8 X10^3/uL (4.5-11.0)
[2022-09-07 11:46] LABS: Prothrombin Time 11.5 SECONDS (10.1-12.7)
[2022-09-07] MEDS: methylPREDNISolone 125 MG/2 ML VIAL IV (11:48)
[2022-09-07 11:50] LABS: Lactate (Lactic Acid) 1.6 mmol/L (0.7-2.1)
--- NOTE | 2022-09-07 11:50 | RT ---
pt milind monika tx well, on room air. pt states improvment noted and feeling better.
[2022-09-07 11:51] LABS: Alanine Aminotransferase 38 IU/L (<35); Albumin 4.3 g/dL (3.5-5.0); Albumin Globulin Ratio 1.1 (1.0-2.8); Alkaline Phosphatase 104 U/L (38-126); Aspartate Aminotransferase 26 IU/L (14-36); BUN Creatinine Ratio 16.7 (6-22); Bilirubin Total 0.3 mg/dL (0.2-1.3); Blood Urea Nitrogen 9 mg/dL (7-17); COVID19 -Nasal RAPID Negative (Negative); Calcium 8.5 mg/dL (8.4-10.2); Carbon Dioxide 27 mmol/L (22-32); Chloride 101 mmol/L (98-107); Estimated Glomerular Filt Rate > 60 mL/min (>60); Glucose 160 mg/dL (70-100); HEMOLYSIS < 15 (0-50); Potassium 3.7 mmol/L (3.4-5.1); Sodium 136 mmol/L (137-145); Total Protein 8.3 g/dL (6.3-8.2)
[2022-09-07 12:03] LABS: NT-proBNP (BNP-Adult 18+) 14 pg/mL (<125); Troponin I < 0.012 ng/mL (0.01-0.034)
--- NOTE | 2022-09-07 12:07 | RT ---
pt milind alvarado well, on room air and no distress noted.
[2022-09-07] MEDS: ALBUTEROL 2.5 MG/3 ML NEB (ADULT) 20 MG INH (12:39)
[2022-09-07 14:05] LABS: D Dimer 398 ng/ml (<500)
[2022-09-07 15:07] LABS: Adenovirus Not Detected (Not Detect); B. parapertussis Not Detected (Not Detecte); Bordetella pertussis Not Detected (Not Detecte); Chlamydophila pneumoniae Not Detected (Not Detect); Coronavirus 229E Not Detected (Not Detect); Coronavirus HKU1 Not Detected (Not Detect); Coronavirus NL 63 Not Detected (Not Detect); Coronavirus OC43 Not Detected (Not Detect); Human Metapneumovirus Not Detected (Not Detect); Human Rhinovirus/Enterovirus Not Detected (Not Detect); Influenza A Not Detected (Not Detect); Influenza B Not Detected (Not Detect); Mycoplasma pneumoniae Not Detected (Not Detect); Parainfluenza Virus 1 Not Detected (Not Detect); Parainfluenza Virus 2 Not Detected (Not Detect); Parainfluenza Virus 3 Not Detected (Not Detect); Parainfluenza Virus 4 Not Detected (Not Detect); Respiratory Syncytial Virus Not Detected (Not Detect); SARS- CoV-2 Not Detected (Not Detecte)
[2022-09-07] MEDS: ALBUTEROL 2.5 MG/3 ML NEB (ADULT) 5 MG INH (15:24)
--- NOTE | 2022-09-07 15:41 | RT ---
pt milind neb tx well, om room air. pt states feels better, audible wheezes heard throughout
--- NOTE | 2022-09-07 16:59 | PM.HP.1 ---
History of Present Illness History of Present Illness Date Patient Seen: 09/07/22 Time Patient Seen: 16:59 Date of Onset of Symptoms: 09/06/22 Chief complaint: Asthma Narrative: Pt presents to ED with acute ashthma exacerbation she was hypoxic to 87% at rest on room air at presentation and was still desatting on exertion after breathing treatments. She recieved solumedrol iv and magnesium in ED in addition to breathing treatments and feels ok at rest currently without supplemental O2. Appetite feels ok no pain. [facility] Social History Smoking Status: Unknown if ever smoked Meds Home Medications and Allergies Home Medications Medication Instructions Recorded Confirmed Type cholecalciferol (vitamin D3) 50 2,000 unit PO QDAY ##0 04/04/17 History mcg (2,000 unit) capsule (Vitamin D3) hydrochlorothiazide 25 mg tablet 25 mg PO QDAY ##0 04/04/17 History lisinopril 40 mg tablet 40 mg PO QDAY ##0 04/04/17 History multivitamin-iron 9 mg-folic acid 1 tab PO QDAY ##0 04/04/17 History 400 mcg-calcium and minerals tablet (Thera M Plus (ferrous fumarate)) lisinopril 20 2 tab PO DAILY 1 month #60 tabs 02/14/21 Rx mg-hydrochlorothiazide 12.5 mg tablet Allergies Allergy/AdvReac Type Severity Reaction Status Date / Time No Known Drug Allergies Allergy Verified 09/07/22 11:30 Review of Systems Review of Systems Narrative: all systems reviewed and negative except as otherwise documented in HPI Exam Vital Signs (past 8 hours): - 09/07/22 11:26 09/07/22 11:23 09/07/22 11:24 Temperature 98.9 F Pulse Rate 107 H Respiratory Rate 36 H Blood Pressure 186/110 H 186/110 H Pulse Oximetry 87 L 88 L Oxygen Delivery Method Room Air 09/07/22 11:24 09/07/22 11:30 09/07/22 11:25 Temperature Pulse Rate 105 H 95 H 92 H Respiratory Rate 24 Blood Pressure Pulse Oximetry 91 97 92 Oxygen Delivery Method Room Air 09/07/22 11:38 09/07/22 11:51 09/07/22 12:28 Temperature Pulse Rate 89 94 H Respiratory Rate 24 24 Blood Pressure 192/110 H Pulse Oximetry 98 97 Oxygen Delivery Method Room Air Room Air 09/07/22 11:30 09/07/22 11:45 09/07/22 11:45 Temperature Pulse Rate 93 H Respiratory Rate Blood Pressure 187/116 H 185/118 H Pulse Oximetry 97 Oxygen Delivery Method 09/07/22 12:00 09/07/22 12:00 09/07/22 12:15 Temperature Pulse Rate 93 H 100 H Respiratory Rate Blood Pressure 192/122 H Pulse Oximetry 100 97 Oxygen Delivery Method 09/07/22 12:15 09/07/22 12:27 09/07/22 12:27 Temperature Pulse Rate 103 H Respiratory Rate Blood Pressure 222/106 H 192/110 H Pulse Oximetry 93 Oxygen Delivery Method 09/07/22 12:30 09/07/22 12:30 09/07/22 12:45 Temperature Pulse Rate 105 H 90 Respiratory Rate Blood Pressure 183/109 H Pulse Oximetry 94 95 Oxygen Delivery Method 09/07/22 12:45 09/07/22 13:00 09/07/22 13:00 Temperature Pulse Rate 105 H Respiratory Rate Blood Pressure 170/106 H 182/110 H Pulse Oximetry 93 Oxygen Delivery Method 09/07/22 13:15 09/07/22 13:15 09/07/22 13:30 Temperature Pulse Rate 100 H Respiratory Rate Blood Pressure 181/108 H 186/111 H Pulse Oximetry 100 Oxygen Delivery Method 09/07/22 13:30 09/07/22 13:45 09/07/22 13:45 Temperature Pulse Rate 109 H 109 H Respiratory Rate 24 Blood Pressure 185/99 H Pulse Oximetry 100 100 Oxygen Delivery Method 09/07/22 14:00 09/07/22 14:00 09/07/22 15:20 Temperature Pulse Rate 115 H 121 H Respiratory Rate 31 H Blood Pressure 176/93 H Pulse Oximetry 100 89 L Oxygen Delivery Method 09/07/22 15:24 Temperature Pulse Rate 114 H Respiratory Rate 24 Blood Pressure Pulse Oximetry 94 Oxygen Delivery Method Room Air Oxygen Delivery Method Room Air Narrative Exam Narrative: obese alert laying on kamaljit ONOFREFL Head: normocephalic and atraumatic Eyes General: appearance normal, both eyes and all related structures Resp Other: moving air ok on RA - moderately tight and wheezy bilaterally on auscultation Cardio Other: elevated rate regular rhythm S1/S2 GI Other: soft nontender nondistended Neuro General: patient alert, patient awake, patient oriented x3, tone normal and moves all extremities Psych Appearance: grossly normal Objective Labs 09/07/22 11:30 09/07/22 11:30 Labs: Laboratory Results - last 24 hr 09/07/22 09/07/22 09/07/22 11:30 11:30 11:30 WBC 13.8 H RBC 5.11 Hgb 11.7 L Hct 37.6 MCV 73.6 L MCH 22.8 L MCHC 31.0 RDW 16.5 H Plt Count 369 Neut % (Auto) 71.2 Lymph % (Auto) 18.0 L [place] % (Auto) 4.0 Eos % (Auto) 5.8 H Baso % (Auto) 1.0 Neut # (Auto) 9900 H Lymph # (Auto) 2500 [place] # (Auto) 500 Eos # (Auto) 800 H Baso # (Auto) 100 PT 11.5 INR 1.0 D-Dimer Sodium 136 L Potassium 3.7 Chloride 101 Carbon Dioxide 27 BUN 9 Creatinine 0.54 Estimated GFR > 60 BUN/Creatinine Ratio 16.7 Glucose 160 H Lactate Calcium 8.5 Total Bilirubin 0.3 AST 26 ALT 38 H Alkaline Phosphatase 104 Troponin I < 0.012 NT-Pro-B Natriuret Pep 14 Total Protein 8.3 H Albumin 4.3 Globulin 4.0 Albumin/Globulin Ratio 1.1 Chlamy pneumoniae PCR Adenovirus (PCR) B. pertussis DNA (PCR) B.parapertussis DNA PCR Coronavirus OC43 (PCR) Coronavirus HKU1 (PCR) Coronavirus 229E (PCR) SARS-CoV-2 (PCR) Coronavirus NL63 (PCR) Human Metapneumovir PCR Influenza Type A (PCR) Influenza Type B (PCR) M. pneumoniae (PCR) Parainfluenza 1 (PCR) Parainfluenza 2 (PCR) Parainfluenza 3 (PCR) Parainfluenza 4 (PCR) RSV (PCR) Entero/Rhino (PCR) 09/07/22 09/07/22 09/07/22 11:30 11:30 11:30 WBC RBC Hgb Hct MCV MCH MCHC RDW Plt Count Neut % (Auto) Lymph % (Auto) [place] % (Auto) Eos % (Auto) Baso % (Auto) Neut # (Auto) Lymph # (Auto) [place] # (Auto) Eos # (Auto) Baso # (Auto) PT INR D-Dimer 398 Sodium Potassium Chloride Carbon Dioxide BUN Creatinine Estimated GFR BUN/Creatinine Ratio Glucose Lactate 1.6 Calcium Total Bilirubin AST ALT Alkaline Phosphatase Troponin I NT-Pro-B Natriuret Pep Total Protein Albumin Globulin Albumin/Globulin Ratio Chlamy pneumoniae PCR Adenovirus (PCR) B. pertussis DNA (PCR) B.parapertussis DNA PCR Coronavirus OC43 (PCR) Coronavirus HKU1 (PCR) Coronavirus 229E (PCR) SARS-CoV-2 (PCR) Negative Coronavirus NL63 (PCR) Human Metapneumovir PCR Influenza Type A (PCR) Influenza Type B (PCR) M. pneumoniae (PCR) Parainfluenza 1 (PCR) Parainfluenza 2 (PCR) Parainfluenza 3 (PCR) Parainfluenza 4 (PCR) RSV (PCR) Entero/Rhino (PCR) 09/07/22 13:45 WBC RBC Hgb Hct MCV MCH MCHC RDW Plt Count Neut % (Auto) Lymph % (Auto) [place] % (Auto) Eos % (Auto) Baso % (Auto) Neut # (Auto) Lymph # (Auto) [place] # (Auto) Eos # (Auto) Baso # (Auto) PT INR D-Dimer Sodium Potassium Chloride Carbon Dioxide BUN Creatinine Estimated GFR BUN/Creatinine Ratio Glucose Lactate Calcium Total Bilirubin AST ALT Alkaline Phosphatase Troponin I NT-Pro-B Natriuret Pep Total Protein Albumin Globulin Albumin/Globulin Ratio Chlamy pneumoniae PCR Not detected Adenovirus (PCR) Not detected B. pertussis DNA (PCR) Not detected B.parapertussis DNA PCR Not detected Coronavirus OC43 (PCR) Not detected Coronavirus HKU1 (PCR) Not detected Coronavirus 229E (PCR) Not detected SARS-CoV-2 (PCR) Not detected Coronavirus NL63 (PCR) Not detected Human Metapneumovir PCR Not detected Influenza Type A (PCR) Not detected Influenza Type B (PCR) Not detected M. pneumoniae (PCR) Not detected Parainfluenza 1 (PCR) Not detected Parainfluenza 2 (PCR) Not detected Parainfluenza 3 (PCR) Not detected Parainfluenza 4 (PCR) Not detected RSV (PCR) Not detected Entero/Rhino (PCR) Not detected Assessment & Plan Assessment & Plan narrative: #acute asthma exacerbation got roids and mag in ED, admit obs, continue duonebs and steroids, encourage mobilization continue prednisone add montelukast as it is pollen season #hypertension pt reports she only takes amlodipine at home continue with prn hydralazine #NIDDM2 mild stable continue home metformin anticipate some elevations in BG with steroid dosing carb controlled diet Code: full MDM: sister Kristen [phone] DVT ppx: SCDs PCP: Tha Diet: carb controlled
[2022-09-07] MEDS: MONTELUKAST 10 MG TABLET PO (20:52)
[2022-09-07 20:55] LABS: Bacteria Urine Occasional (0-1); Culture Indicated Urine Cult Not Indicated; Mucus Urine 1+ (Negative); RBC Urine 10-30/HPF (0-5/HPF); Squamous Epithelial Cell Urine 1-5 /HPF (0-5/HPF); Transitional Epi Cells Urine 0-1/HPF (0-5/HPF); WBC Urine 1-5/HPF (0-5/HPF)
[2022-09-08] VITALS (27 sets, daily range): BP systolic 132–176; BP diastolic 76–104; PULSE 82–111; RESP 18–27; TEMP 36.4–37.1; O2SAT 90–100; BMI 40.4
--- NOTE | 2022-09-08 07:33 | PC.NURSE ---
This RNs first interaction with patient. VSS. In no apparent distress.
[2022-09-08] MEDS: ALBUTEROL/IPRATROPIUM 3 ML AMPUL INH ×5 (08:01→23:09)
[2022-09-08] MEDS: METFORMIN HCL 500 MG TABLET PO ×2 (09:25→17:13)
[2022-09-08] MEDS: MONTELUKAST 10 MG TABLET PO (09:26)
[2022-09-08] MEDS: AMLODIPINE 5 MG TABLET 10 MG PO (09:27)
[2022-09-08] MEDS: predniSONE 20 MG TABLET 60 MG PO (09:27)
[2022-09-08] MEDS: ENOXAPARIN 40 MG/0.4 ML SYRINGE SUBCUT ×2 (09:33→21:26)
--- NOTE | 2022-09-08 09:34 | PC.NURSE ---
Lab (Abe) called at 0931 to say PTT that was drawn at 0750 is either an inaccurate sample or the reading is so high that its not reading on the lab monitoring system. Spoke to Charge [facility] and ED physician RM. ED physician ordered the heparin be stopped immediately until a new PTT is drawn and resulted. That was done as ordered. Will call admitting physician for their feedback, as well.
--- NOTE | 2022-09-08 12:41 | CM.IDA ---
Initial DCP Assessment Patient is 41 y/o female who presents to due to concern for SOB and Asthma. Patient endorses that it is smokey at her place of work at [employer] and it worsened her breathing. Patient endorses she uses her inhaler regularly. Patient was admitted Dr. Lopez. Patient's PCP is Dr. Almazan, patient has [employer] insurance. [employer] enters room to meet with patient. Patient presents as A/Ox4, patient endorses she resides in [place] with her sister and children. Patient endorses independence with ADLs and endorses she drives. Patient denies DCP needs. Plan: Patient to admit to acute care for evaluation and treatment, patient denies current DCP needs, patient likely to d/c to home upon medical clearance. CHRISTEL Davis Discharge Planning/Care Management CM Discharge Assessment Start: 09/08/22 12:38 Freq: Status: Active Protocol: Document 09/08/22 12:38 LN (Rec: 09/08/22 12:41 LN [id number]) Discharge Planning Assessment Assigned Dean CHRISTEL Michele Advance Directives? No History Provided By Patient,Medical Record Has Patient been admitted in last 30 No days? Prior Living Arrangements Apartment/Condo Household Members family,children Type of transportation used prior to Drives own vehicle admit Independent with ADL's Yes Is patient alert and oriented? Yes Referrals Initiated None needed Please Provide Date Initial DC 09/08/22 Assessment Was Performed
[2022-09-08 15:13] LABS: MRSA (Nasal) PCR Not Detected (Not Detect)
--- NOTE | 2022-09-08 16:56 | PM.PN.1 ---
Subjective Subjective Interval history: cc: shortness of breath did ok overnight still requiring regular breathing treatment some improvement with steroids and mag will transition to po prednisone and add montelukast today not ready to go home yet Exam Vital Signs (past 8 hours): - 09/08/22 11:20 09/08/22 12:02 09/08/22 13:15 Temperature 98.7 F Pulse Rate 88 103 H 97 H Respiratory Rate 20 24 Blood Pressure 151/104 H Blood Pressure [Right Wrist] 169/91 H Pulse Oximetry 94 95 Oxygen Delivery Method Room Air Room Air Oxygen Flow Rate 0 09/08/22 13:10 09/08/22 13:10 09/08/22 16:41 Temperature 98.5 F Pulse Rate 101 H Respiratory Rate 22 Blood Pressure 150/93 H Blood Pressure [Right Wrist] Pulse Oximetry 94 Oxygen Delivery Method Room Air Room Air Oxygen Flow Rate Oxygen Delivery Method Room Air Oxygen Flow Rate 0 Narrative Exam Narrative: obese female laying on ED gurney Eyes Other: mild allergic shiners Resp Other: one hour after breaqthing treatment she is still tight and squeaky on L hemithorax,. moving air ok. Cardio Other: elevated rate regular rhythm GI Other: soft nontender nondistended Neuro General: patient alert, patient awake and patient oriented x3 Extrem General: full ROM and no clubbing, cyanosis or edema Psych Appearance: grossly normal Objective Labs 09/07/22 11:30 09/07/22 11:30 Labs: Laboratory Results - last 24 hr 09/07/22 09/08/22 20:25 13:00 Urine RBC 10-30/hpf H Urine WBC 1-5/hpf Ur Squamous Epith Cells 1-5 /hpf Ur Transition Epith Cell 0-1/hpf Urine Bacteria Occasional (0-1) Urine Mucus 1+ H Ur Culture Indicated? Cult not indicated Nasal Screen MRSA (PCR) Not detected PFSH Social History household members: family and children Smoking Status: Never smoker alcohol intake: current Assessment & Plan Assessment & Plan narrative: #acute asthma exacerbation got iv solumedrol and mag in ED, continue duonebs and steroids, encourage mobilization continue prednisone add montelukast as it is pollen season she is improved some over night but still generally tight and wheezy - she will improve right after a breathing treatment then close up again #hypertension pt reports she only takes amlodipine at home continue with prn hydralazine #NIDDM2 mild stable continue home metformin anticipate some elevations in BG with steroid dosing carb controlled diet Code: full MDM: sister Kristen [phone] DVT ppx: SCDs PCP: Tha Diet: carb controlled Quality VTE Deep Vein Thrombosis/Pulmonary Embolism Present on Admission: No
--- NOTE | 2022-09-08 18:11 | PC.NURSE ---
1800 Patient ambulating in hallway, denies dizziness, c/o intermittent cramping pain that feels like gas.
[2022-09-09] VITALS: BP 158/77; PULSE 95; RESP 18; TEMP 36.7; O2SAT 95
[2022-09-09 04:00] VITALS: BP 146/87; PULSE 88; RESP 17; TEMP 36.8; O2SAT 94
--- NOTE | 2022-09-09 05:16 | PC.NURSE ---
Minimal wheezing noted throughout lung ann. no shortness of breath noted.
[2022-09-09 07:00] VITALS: O2SAT 99
[2022-09-09 07:15] VITALS: PULSE 91; RESP 18; O2SAT 94
[2022-09-09] MEDS: ALBUTEROL/IPRATROPIUM 3 ML AMPUL INH (07:15)
[2022-09-09] MEDS: ENOXAPARIN 40 MG/0.4 ML SYRINGE SUBCUT (08:12)
[2022-09-09] MEDS: predniSONE 20 MG TABLET 60 MG PO (08:13)
[2022-09-09] MEDS: MONTELUKAST 10 MG TABLET PO (08:13)
[2022-09-09] MEDS: AMLODIPINE 5 MG TABLET 10 MG PO (08:13)
[2022-09-09] MEDS: METFORMIN HCL 500 MG TABLET PO (08:21)
[2022-09-09 08:33] VITALS: BP 139/79; PULSE 90; RESP 16; TEMP 36.6; O2SAT 96
[2022-09-09] MEDS: CHOLECALCIFEROL (VITAMIN D3) 1,000 UNIT TABLET 2000 UNIT PO (10:00)
--- NOTE | 2022-09-09 10:02 | PM.DS.1 ---
History of Present Illness History of Present Illness Date Patient Seen: 09/09/22 Time Patient Seen: 10:03 Date of Onset of Symptoms: 09/07/22 Chief complaint: Asthma Narrative: Pt presents to ED with acute ashthma exacerbation she was hypoxic to 87% at rest on room air at presentation and was still desatting on exertion after breathing treatments. She recieved solumedrol iv and magnesium in ED in addition to breathing treatments and feels ok at rest currently without supplemental O2.? Appetite feels ok no pain. Discharge Providers Provider Date of admission: 09/07/22 15:40 Discharge Date: 09/09/22 Primary care physician: Isabella Almazan MD Discharge provider: Sha Arellano MD Summary Hospital Course Discharge Diagnosis: Acute asthma exacerbation Acute respiratory failure secondary to asthma Hypertension No onset type 2 diabetes Hospital Course: Acute asthma exacerbation. Patient was brought into the hospital and steroids initially were IV Solu-Medrol and switch to prednisone. Patient was given oxygen as needed and slowly improved. Still had some significant tightness of her exam through the course of the 1st 24 hours. Slowly improved over time. Had no further decrease in O2 pulse ox and has no other changes. Exam today was clear with no wheezes. Patient will be sent home on 60 mg of prednisone will hold montelukast and allow Dr. Almazan on follow-up visit decide if she wants to continue that. No evidence of infection. No antibiotics needed. Will follow up with Dr. Almazan on Sunday of next week. Hypertension. Patient intermittently poor control and was given hydralazine intermittently throughout the course of her admission. Had been sometime since she got up prior to discharge and we followed as an outpatient. Dr. Almazan can make adjustments as needed in the outpatient setting. Do not want to add more medication if we do not need to. Will see how things go over time. May just be stress of being in the hospital. Acute respiratory failure. Patient initially with pulse ox is in the 80s. Eighty-seven documented. Patient was stable through most of her admission did not require oxygen and slowly improved. All secondary to asthma exacerbation. No evidence of significant pneumonia or infection otherwise. Will be followed. Type 2 diabetes. Will continue metformin no issue during this admission. Exam Vital Signs (past 8 hours): - 09/09/22 04:00 09/09/22 07:15 09/09/22 08:33 Temperature 98.2 F 97.8 F Pulse Rate 88 91 H 90 Respiratory Rate 17 18 16 Blood Pressure 146/87 H 139/79 Pulse Oximetry 94 94 96 Oxygen Delivery Method Room Air Oxygen Flow Rate 0 0 Fraction of Inspired Oxygen 21 09/09/22 07:00 09/09/22 07:00 Temperature Pulse Rate Respiratory Rate Blood Pressure Pulse Oximetry 99 Oxygen Delivery Method Room Air Room Air Oxygen Flow Rate Fraction of Inspired Oxygen Fraction of Inspired Oxygen 21 SaO2/FiO2 Ratio 447 Oxygen Delivery Method Room Air Oxygen Flow Rate 0 Narrative Exam Narrative: Alert mildly obese female in no acute distress breathing comfortably. No oxygen at this time. Mucous membranes moist neck supple without adenopathy lungs are clear heart is regular rate and rhythm abdomen is soft positive bowel sounds nontender extremities normal neurologic exam is nonfocal Objective Labs 09/07/22 11:30 09/07/22 11:30 Labs: Laboratory Results - last 24 hr 09/08/22 13:00 Nasal Screen MRSA (PCR) Not detected PFSH Social History household members: family and children Smoking Status: Never smoker alcohol intake: current Discharge Assessment & Plan Assessment and Plan Assessment: Acute asthma exacerbation Plan of Treatment: Discharge home. Greater than 35 minutes spent discussing with nurses discussing with patient exam orders discharge. Discharge Plan Discharge Plan Patient Disposition: Home Discharge orders & Medications Prescriptions: New prednisone 20 mg Tablet 60 mg PO DAILY Qty: 60 0RF albuterol sulfate 90 mcg/actuation HFA aerosol inhaler 2 puff inhalation Q6H PRN (Reason: shortness of breath or wheezing) Qty: 6.7 6RF Continued cholecalciferol (vitamin D3) [Vitamin D3] 2,000 UNIT capsule 2,000 unit PO QDAY Qty: 0 amlodipine 10 mg tablet 10 mg PO DAILY Patient Comments: take 1 tablet by mouth once daily metformin 500 mg tablet 500 mg PO BID Patient Comments: take 1 tablet by mouth twice a day before meals for diabetes Follow up/Referrals: Isabella Almazan MD [Primary Care Provider] - 09/12/22 (Patient to call Sunday for an appointment on Sunday.) Discharge Health Status Multidrug resistant organism: No MDRO Diet/Activity/Treatments Diet: Diet as Tolerated Skin/Wound/Dressing Care Report to your healthcare provider any signs of infection, such as:: chills, fever Visit Report/Discharge Packet Stand Alone Forms: Patient Portal/API, Stroke Signs & Symptoms Discharge Data Primary Care Provider: Isabella Almazan Attending Provider: Yinka Lopez Admnika Date/Time: 09/07/22 15:40 Quality VTE Deep Vein Thrombosis/Pulmonary Embolism Present on Admission: No
== END 2022-09-09 12:30 | disposition home or self-care (01) ==
LOC: ED 13:57 → AC 15:42 → ICU 09-08 12:33 → AC 09-09 09:39 → ICU 09-09 09:41
PROVIDERS: Admitting Provider Family Medicine; Emergency Provider Emergency Medicine; Family Provider Family Medicine; PCP Family Medicine; Referring Provider Emergency Medicine; Visit Provider Family Medicine
DX: J96.00 Acute respiratory failure, unspecified whether with hypoxia or hypercapnia (principal); J45.901 Unspecified asthma with (acute) exacerbation; I10 Essential (primary) hypertension; E11.9 Type 2 diabetes mellitus without complications; Z79.84 Long term (current) use of oral hypoglycemic drugs; Z20.822 Contact with and (suspected) exposure to COVID-19
CPT/HCPCS: 36415; 71045; 80053; 81003; 81015; 81025; 82962; 83605; 83880; 84484; 85025; 85379; 85610; 87633; 87635; 87797; 93005; 94150; 94640; 94760; 96372; 96374; 99284; 99285; C9803; G0378; J1650; J2930; J7613

== ENCOUNTER 2022-10-09 13:39 | Inpatient (IN) | payer OTHER, SELFPAY ==
[2022-10-09] VITALS (43 sets, daily range): BP systolic 148–269; BP diastolic 76–156; PULSE 89–128; RESP 20–54; TEMP 36.5–36.6; O2SAT 88–100; BMI 44.6
--- NOTE | 2022-10-09 13:58 | DI.RAD.S_ITS ---
PROCEDURE: XR CHEST 1V INDICATIONS: Shortness of breath TECHNIQUE: One view of the chest was acquired. COMPARISON: None. FINDINGS: Surgical changes and devices: None. Lungs and pleura: Lungs are clear. No pleural effusions or pneumothorax. Mediastinum: Mediastinal contours appear normal. Heart size is normal. Bones and chest wall: No suspicious bony lesions. Overlying soft tissues appear unremarkable. IMPRESSION: No acute pulmonary process. Dictated by: Catrina Christianson M.D. on 10/09/2022 at 14:57 Approved by: Catrina Christianson M.D. on 10/09/2022 at 14:57
[2022-10-09] MEDS: ALBUTEROL 2.5 MG/3 ML NEB (ADULT) 20 MG INH (14:10)
[2022-10-09 14:18] LABS: Add Manual Diff / Slide Review NO; Basophils Absolute Auto 100 /uL (0-100); Basophils Percent Auto 0.6 % (0-2); Eosinophils Absolute Auto 600 /uL (0-450); Eosinophils Percent Auto 5.4 % (2-4); Hematocrit 37.2 % (36-46); Hemoglobin 11.8 g/dL (12.0-16.0); Lymphocytes Absolute Auto 2200 /uL (1100-4500); Lymphocytes Percent Auto 18.1 % (25-40); Mean Corpuscular HGB Conc 31.7 % (30-36); Mean Corpuscular Hemoglobin 23.5 PG (26-34); Mean Corpuscular Volume 74.3 fL (80-100); Monocytes Absolute Auto 500 /uL (0-900); Monocytes Percent Auto 4.4 % (3-14); Neutrophils Absolute Auto 8500 /uL (1500-7000); Neutrophils Percent Auto 71.5 % (50-75); Platelet Count 327 X10^3/uL (150-400); Red Cell Distribution Width 18.2 % (11.6-14.8)
[2022-10-09 14:21] LABS: Prothrombin Time 11.3 SECONDS (10.1-12.7)
[2022-10-09] MEDS: methylPREDNISolone 125 MG/2 ML VIAL IV (14:24)
[2022-10-09 14:28] LABS: Alanine Aminotransferase 36 IU/L (<35); Albumin Globulin Ratio 1.2 (1.0-2.8); Alkaline Phosphatase 108 U/L (38-126); Aspartate Aminotransferase 24 IU/L (14-36); BUN Creatinine Ratio 22.4 (6-22); Bilirubin Total 0.4 mg/dL (0.2-1.3); Blood Urea Nitrogen 13 mg/dL (7-17); Calcium 8.8 mg/dL (8.4-10.2); Carbon Dioxide 29 mmol/L (22-32); Chloride 102 mmol/L (98-107); Estimated Glomerular Filt Rate > 60 mL/min (>60); Globulin 3.4 g/dL (1.7-4.1); Glucose 182 mg/dL (70-100); HEMOLYSIS < 15 (0-50); Potassium 3.8 mmol/L (3.4-5.1); Sodium 137 mmol/L (137-145); Total Protein 7.4 g/dL (6.3-8.2)
[2022-10-09 14:39] LABS: NT-proBNP (BNP-Adult 18+) < 11 pg/mL (<125); Troponin I < 0.012 ng/mL (0.01-0.034)
--- NOTE | 2022-10-09 15:26 | ED_ITS ---
HPI - SOB/Dyspnea General Chief Complaint: Shortness of Breath/Dyspnea Stated Complaint: SOB Time Seen by Provider: 10/09/22 14:00 Source: patient Mode of arrival: Wheelchair Limitations: no limitations History of Present Illness HPI Narrative: Patient is a 40-year-old female who has a history of hypertension and asthma she reports that she is previously been intubated and hospitalized for her asthma. Last hospitalization was 09/07/2022 and discharged on September 09. Today she presents with increasing shortness of breath has been ongoing for about 1 week. She denies any fever or chills. She is been using her inhaler regularly but it does not seem to be working. She was 88% on room air with audible wheezing and significant work of breathing. Related Data Home Medications Medication Instructions Recorded Confirmed cholecalciferol (vitamin D3) 50 2,000 unit PO QDAY ##0 04/04/17 10/09/22 mcg (2,000 unit) capsule (Vitamin D3) amlodipine 10 mg tablet 10 mg PO DAILY 09/08/22 10/09/22 metformin 500 mg tablet 500 mg PO BID 09/08/22 10/09/22 Previous Rx's Medication Instructions Recorded albuterol sulfate 90 mcg/actuation 2 puff inhalation Q6H PRN 09/09/22 aerosol inhaler shortness of breath or wheezing #6.7 grams prednisone 20 mg tablet 60 mg PO DAILY #60 tabs 09/09/22 Allergies Allergy/AdvReac Type Severity Reaction Status Date / Time No Known Drug Allergies Allergy Verified 10/09/22 14:32 Review of Systems Review of Systems ROS Unobtainable: All systems reviewed & are unremarkable except as noted in HPI and below Patient History Social History household members: family and children Smoking Status: Never smoker alcohol intake: current Smoking Status: Never smoker alcohol intake frequency: holidays/special occasions only Substance Use Type: does not use Exam Initial Vital Signs Initial Vital Signs: Vital Signs Temperature 97.8 F 10/09/22 13:55 Pulse Rate 118 H 10/09/22 13:55 Respiratory Rate 30 H 10/09/22 13:55 Blood Pressure 269/139 H 10/09/22 13:55 Pulse Oximetry 88 L 10/09/22 13:55 Oxygen Delivery Method Room Air 10/09/22 13:55 GENERAL: Alert moderate respiratory distress HEENT: Head atraumatic,EOMI, pupils reactive, face symmetric, moist mucous membranes CARDIOVASCULAR: Regular rate and rhythm without murmurs, rubs or gallops. RESPIRATORY: Wheezing bilaterally more than 1-2 word sentences. Significant tachypnea ABDOMEN: Soft, nontender. Normoactive bowel sounds all 4 quadrants. No guarding or rebound. EXTREMITIES: Normal range of motion, no clubbing or edema. Neurovascularly intact NEUROLOGICAL: Alert and oriented x4. SKIN: Warm, dry, no laceration, no petechiae, no rashes or lesions. Course Orders Ordered: ED Orders 10/09/22 13:58 XR chest 1V Stat Measure peak expiratory flow ONCE RT Consult Eval and Treat NOW 10/09/22 14:00 Respiratory Panel (Film Array) Stat 10/09/22 14:08 Complete Blood Count AUTO DIFF Stat Comprehensive Metabolic Panel Stat Lactate (Lactic Acid) Stat Magnesium Stat NT-proBNP (BNP-Adult 18+) Stat Prothrombin Time INR Stat Troponin I Stat 10/09/22 14:27 EKG-12 Lead Stat 10/09/22 16:55 CT angio chest PE protocol Stat 10/09/22 18:25 COVID19 -Nasal RAPID Stat Acetaminophen (Acetaminophen 325 Mg Tablet) 650 mg PO Q6H PRN PRN Reason: Fever/Mild Pain (1-3) Hydrocodone Bitart/Acetaminophen (Hydrocodone/Acet 5/325 Tablet) 1 tab PO Q4H PRN PRN Reason: Pain, Moderate (4-6) Albuterol (Albuterol 2.5 Mg/3 Ml Neb (Adult)) 2.5 mg INH [id number] [facility] Amlodipine Besylate (Amlodipine 5 Mg Tablet) 10 mg PO DAILY [facility] Enoxaparin Sodium (Enoxaparin 40 Mg/0.4 Ml Syringe) 40 mg SUBCUT BID [facility] Ibuprofen (Ibuprofen 600 Mg Tablet) 600 mg PO Q6H PRN PRN Reason: Fever/Mild Pain (1-3) Lorazepam (Lorazepam 2 Mg/Ml Inj) 0.5 mg IV Q6HR PRN PRN Reason: Anxiety Last Admin: 10/09/22 18:45 Dose: 0.5 mg Documented By: [facility] Methylprednisolone (Methylprednisolone 125 Mg/2 Ml Vial) 60 mg IV Q8H [facility]ST[facility] Naloxone HCl (Naloxone 0.4 Mg/Ml Vial) 0.2 mg IV Q2MIN PRN PRN Reason: Opiate Reversal Sodium Chloride (Sodium Chloride 0.9% Flush) 10 ml IV PRN PRN PRN Reason: Flush Sodium Chloride (Sodium Chloride 0.9% Flush) 10 ml IV BID CRISTINO Discontinued Medications Albuterol (Albuterol 2.5 Mg/3 Ml Neb (Adult)) 20 mg INH NOW ONE Stop: 10/09/22 14:03 Last Admin: 10/09/22 14:10 Dose: 20 mg Documented By: ELENA Magnesium Sulfate (Magnesium Sulfate) 2 gm in 50 mls @ 150 mls/hr IV NOW ONE Stop: 10/09/22 16:18 Last Infusion: 10/09/22 16:59 Dose: 0 mls/hr Documented By: SABINE Co-signed By: ANASTASIA Admin: 10/09/22 16:15 Dose: 150 mls/hr Documented By: SABINE Co-signed By: DIEGO Ceftriaxone Sodium 2,000 mg/ (Sodium Chloride) 100 mls @ 200 mls/hr IV NOW ONE Stop: 10/09/22 17:52 Last Admin: 10/09/22 18:45 Dose: 200 mls/hr Documented By: KEITH Methylprednisolone (Methylprednisolone 125 Mg/2 Ml Vial) 125 mg IV NOW ONE Stop: 10/09/22 14:03 Last Admin: 10/09/22 14:24 Dose: 125 mg Documented By: SABINE Vital Signs Vital signs: Vital Signs - 8 hr 10/09/22 13:55 10/09/22 14:10 10/09/22 13:56 Temperature 97.8 F Pulse Rate 118 H 112 H Respiratory Rate 30 H 32 H Blood Pressure 269/139 H 269/139 H Pulse Oximetry 88 L 97 Oxygen Delivery Method Room Air Room Air Oxygen Flow Rate 0 Fraction of Inspired Oxygen 21 10/09/22 13:57 10/09/22 14:00 10/09/22 14:00 Temperature Pulse Rate 117 H 111 H Respiratory Rate 25 H Blood Pressure 211/107 H Pulse Oximetry 89 L 95 Oxygen Delivery Method Room Air Oxygen Flow Rate Fraction of Inspired Oxygen 10/09/22 14:15 10/09/22 14:30 10/09/22 14:30 Temperature Pulse Rate 107 H 109 H Respiratory Rate 28 H 27 H Blood Pressure 182/103 H Pulse Oximetry 99 99 Oxygen Delivery Method Oxygen Flow Rate Fraction of Inspired Oxygen 10/09/22 14:45 10/09/22 15:00 10/09/22 15:00 Temperature Pulse Rate 104 H 110 H Respiratory Rate 26 H 25 H Blood Pressure 190/119 H Pulse Oximetry 100 100 Oxygen Delivery Method Oxygen Flow Rate Fraction of Inspired Oxygen 10/09/22 15:15 10/09/22 15:30 10/09/22 15:30 Temperature Pulse Rate 110 H 113 H Respiratory Rate 26 H 29 H Blood Pressure 175/86 H Pulse Oximetry 100 99 Oxygen Delivery Method Nasal Cannula Oxygen Flow Rate Fraction of Inspired Oxygen 10/09/22 15:45 10/09/22 16:00 10/09/22 16:00 Temperature Pulse Rate 114 H 123 H Respiratory Rate 27 H 28 H Blood Pressure 229/129 H Pulse Oximetry 98 92 Oxygen Delivery Method Nasal Cannula Oxygen Flow Rate 2 Fraction of Inspired Oxygen 10/09/22 16:15 10/09/22 16:30 10/09/22 16:30 Temperature Pulse Rate 122 H 116 H Respiratory Rate 45 H 24 Blood Pressure 170/84 H Pulse Oximetry 93 89 L Oxygen Delivery Method Nasal Cannula Nasal Cannula Oxygen Flow Rate 2 2 Fraction of Inspired Oxygen 10/09/22 17:00 10/09/22 16:35 Temperature Pulse Rate 109 H 112 H Respiratory Rate 22 23 Blood Pressure 188/156 H Pulse Oximetry 94 88 L Oxygen Delivery Method Nasal Cannula Oxygen Flow Rate 4 Fraction of Inspired Oxygen MDM - SOB/Dyspnea Lab Data 10/09/22 14:08 10/09/22 14:08 Labs: Lab Results 10/09/22 10/09/22 10/09/22 Range/Units 14:00 14:08 14:08 WBC 12.0 H (4.5-11.0) X10^3/uL RBC 5.00 (4.0-5.2) X10^6/uL Hgb 11.8 L (12.0-16.0) g/dL Hct 37.2 (36-46) % MCV 74.3 L (80-100) fL MCH 23.5 L (26-34) PG MCHC 31.7 (30-36) % RDW 18.2 H (11.6-14.8) % Plt Count 327 (150-400) X10^3/uL Neut % (Auto) 71.5 (50-75) % Lymph % (Auto) 18.1 L (25-40) % Charles % (Auto) 4.4 (3-14) % Eos % (Auto) 5.4 H (2-4) % Baso % (Auto) 0.6 (0-2) % Neut # (Auto) 8500 H (6383-9879) /uL Lymph # (Auto) 2200 (0464-6437) /uL Charles # (Auto) 500 (0-900) /uL Eos # (Auto) 600 H (0-450) /uL Baso # (Auto) 100 (0-100) /uL PT 11.3 (10.1-12.7) SECONDS INR 1.0 (0.9-1.3) Sodium (137-145) mmol/L Potassium (3.4-5.1) mmol/L Chloride (98-107) mmol/L Carbon Dioxide (22-32) mmol/L BUN (7-17) mg/dL Creatinine (0.52-1.04) mg/dL Estimated GFR (>60) mL/min BUN/Creatinine Ratio (6-22) Glucose (70-100) mg/dL Lactate (0.7-2.1) mmol/L Calcium (8.4-10.2) mg/dL Magnesium (1.6-2.3) mg/dL Total Bilirubin (0.2-1.3) mg/dL AST (14-36) IU/L ALT (<35) IU/L Alkaline Phosphatase (38-126) U/L Troponin I (0.01-0.034) ng/mL NT-Pro-B Natriuret Pep (<125) pg/mL Total Protein (6.3-8.2) g/dL Albumin (3.5-5.0) g/dL Globulin (1.7-4.1) g/dL Albumin/Globulin Ratio (1.0-2.8) Chlamy pneumoniae PCR Not detected (Not Detect) Adenovirus (PCR) Not detected (Not Detect) B. pertussis DNA (PCR) Not detected (Not Detecte) B.parapertussis DNA PCR Not detected (Not Detecte) Coronavirus OC43 (PCR) Not detected (Not Detect) Coronavirus HKU1 (PCR) Not detected (Not Detect) Coronavirus 229E (PCR) Not detected (Not Detect) SARS-CoV-2 (PCR) Not detected (Not Detecte) Coronavirus NL63 (PCR) Not detected (Not Detect) Human Metapneumovir PCR Not detected (Not Detect) Influenza Type A (PCR) Not detected (Not Detect) Influenza Type B (PCR) Not detected (Not Detect) M. pneumoniae (PCR) Not detected (Not Detect) Parainfluenza 1 (PCR) Not detected (Not Detect) Parainfluenza 2 (PCR) Not detected (Not Detect) Parainfluenza 3 (PCR) Not detected (Not Detect) Parainfluenza 4 (PCR) Not detected (Not Detect) RSV (PCR) Not detected (Not Detect) Entero/Rhino (PCR) Not detected (Not Detect) 10/09/22 10/09/22 10/09/22 Range/Units 14:08 14:08 14:08 WBC (4.5-11.0) X10^3/uL RBC (4.0-5.2) X10^6/uL Hgb (12.0-16.0) g/dL Hct (36-46) % MCV (80-100) fL MCH (26-34) PG MCHC (30-36) % RDW (11.6-14.8) % Plt Count (150-400) X10^3/uL Neut % (Auto) (50-75) % Lymph % (Auto) (25-40) % Charles % (Auto) (3-14) % Eos % (Auto) (2-4) % Baso % (Auto) (0-2) % Neut # (Auto) (8558-8236) /uL Lymph # (Auto) (6705-0078) /uL Charles # (Auto) (0-900) /uL Eos # (Auto) (0-450) /uL Baso # (Auto) (0-100) /uL PT (10.1-12.7) SECONDS INR (0.9-1.3) Sodium 137 (137-145) mmol/L Potassium 3.8 (3.4-5.1) mmol/L Chloride 102 (98-107) mmol/L Carbon Dioxide 29 (22-32) mmol/L BUN 13 (7-17) mg/dL Creatinine 0.58 (0.52-1.04) mg/dL Estimated GFR > 60 (>60) mL/min BUN/Creatinine Ratio 22.4 H (6-22) Glucose 182 H (70-100) mg/dL Lactate 1.0 (0.7-2.1) mmol/L Calcium 8.8 (8.4-10.2) mg/dL Magnesium 2.1 (1.6-2.3) mg/dL Total Bilirubin 0.4 (0.2-1.3) mg/dL AST 24 (14-36) IU/L ALT 36 H (<35) IU/L Alkaline Phosphatase 108 (38-126) U/L Troponin I < 0.012 (0.01-0.034) ng/mL NT-Pro-B Natriuret Pep < 11 (<125) pg/mL Total Protein 7.4 (6.3-8.2) g/dL Albumin 4.0 (3.5-5.0) g/dL Globulin 3.4 (1.7-4.1) g/dL Albumin/Globulin Ratio 1.2 (1.0-2.8) Chlamy pneumoniae PCR (Not Detect) Adenovirus (PCR) (Not Detect) B. pertussis DNA (PCR) (Not Detecte) B.parapertussis DNA PCR (Not Detecte) Coronavirus OC43 (PCR) (Not Detect) Coronavirus HKU1 (PCR) (Not Detect) Coronavirus 229E (PCR) (Not Detect) SARS-CoV-2 (PCR) (Not Detecte) Coronavirus NL63 (PCR) (Not Detect) Human Metapneumovir PCR (Not Detect) Influenza Type A (PCR) (Not Detect) Influenza Type B (PCR) (Not Detect) M. pneumoniae (PCR) (Not Detect) Parainfluenza 1 (PCR) (Not Detect) Parainfluenza 2 (PCR) (Not Detect) Parainfluenza 3 (PCR) (Not Detect) Parainfluenza 4 (PCR) (Not Detect) RSV (PCR) (Not Detect) Entero/Rhino (PCR) (Not Detect) Imaging Data Chest x-ray: Radiologist's Impression: PROCEDURE:? XR CHEST 1V ? INDICATIONS:? Shortness of breath ? TECHNIQUE:? One view of the chest was acquired.? ? COMPARISON:? None. ? FINDINGS:? ? Surgical changes and devices:? None.? ? Lungs and pleura:? Lungs are clear.? No pleural effusions or pneumothorax.? ? Mediastinum:? Mediastinal contours appear normal.? Heart size is normal.? ? Bones and chest wall:? No suspicious bony lesions.? Overlying soft tissues appear unremarkable.? ? IMPRESSION:? No acute pulmonary process. ? ? Dictated by: Catrina Christianson M.D. on 10/09/2022 at 14:57 ? [facility] Narrative Medical decision making narrative: Patient 41-year-old female history of hospitalization with asthma presenting to asthma exacerbation admitted last month for 3 days for same. She has no fever. Immediately put on continuous nebulizer of albuterol which does seem to help. She is mildly hypoxic 88% on room air improving. With recent hospitalization concern for possible pulmonary embolism CT scan is negative for PE. However does show mild bilateral pneumonia. No concern for sepsis. After continuous nebulizer and Solu-Medrol patient is still very wheezy but tachypnea has improved tachycardic and still requiring oxygen. She is given magnesium. He is requiring 2-[address] Almazan updated patient's symptoms test results based on patient's history pretty significant as well like to put her in the ICU she happily accepts patient. She is added antibiotics for the pneumonia on CT Discharge Plan Departure Patient Disposition: Admitted as Observation Clinical Impression: Asthma exacerbation, Hospital acquired PNA Admit Date/Time: 10/09/22 17:39 Admit Provider: Isabella Almazan
[2022-10-09 15:32] LABS: Adenovirus Not Detected (Not Detect); B. parapertussis Not Detected (Not Detecte); Bordetella pertussis Not Detected (Not Detecte); Chlamydophila pneumoniae Not Detected (Not Detect); Coronavirus 229E Not Detected (Not Detect); Coronavirus HKU1 Not Detected (Not Detect); Coronavirus NL 63 Not Detected (Not Detect); Coronavirus OC43 Not Detected (Not Detect); Human Metapneumovirus Not Detected (Not Detect); Human Rhinovirus/Enterovirus Not Detected (Not Detect); Influenza A Not Detected (Not Detect); Influenza B Not Detected (Not Detect); Mycoplasma pneumoniae Not Detected (Not Detect); Parainfluenza Virus 1 Not Detected (Not Detect); Parainfluenza Virus 2 Not Detected (Not Detect); Parainfluenza Virus 3 Not Detected (Not Detect); Parainfluenza Virus 4 Not Detected (Not Detect); Respiratory Syncytial Virus Not Detected (Not Detect); SARS- CoV-2 Not Detected (Not Detecte)
[2022-10-09] MEDS: MAGNESIUM SULFATE 2 GM/50 ML PIGGYBACK IV (16:15)
--- NOTE | 2022-10-09 16:55 | DI.CT.S_ITS ---
PROCEDURE: CT ANGIO CHEST PE PROTOCOL INDICATIONS: hypoxia TECHNIQUE: After the administration of intravenous contrast, 2 mm thick sections acquired from the pulmonary apices to the posterior costophrenic angles. 3-dimensional maximum intensity projection (MIP) coronal and sagittal reformats were then acquired through the thorax. For radiation dose reduction, the following was used: automated exposure control, adjustment of mA and/or kV according to patient size. COMPARISON: [facility], CR, XR CHEST 1V, 10/09/2022, 13:56. FINDINGS: Image quality: Degraded by motion artifact. Suboptimal pulmonary arterial opacification. Pulmonary arteries: Pulmonary arteries are normal in size, and demonstrate no intraluminal filling defects to suggest central pulmonary embolism. Lungs and pleura: Mild bilateral mid and lower lung predominant ground-glass density. There is a 5 mm nodule within the right middle lobe medial segment anteriorly. No pleural effusions or pneumothorax. Central and peripheral airways are patent. Mediastinum: Heart size is normal, without pericardial effusion. No mediastinal or hilar adenopathy. Thoracic aorta is normal in caliber and enhancement. Esophagus is normal in caliber, without hiatal hernia. Bones and chest wall: No suspicious bony lesions. Ribs and thoracic spine appear intact throughout. Thyroid gland is grossly intact. No axillary or supraclavicular adenopathy. Abdomen: Visualized upper abdominal solid organs appear normal in the early arterial phase of enhancement. IMPRESSION: 1. Limited examination demonstrating no definite central pulmonary embolus. 2. Mild bilateral pneumonia. 3. Right middle lobe pulmonary nodule. Follow-up is recommended as below. Fleischner Society criteria for SOLID lung nodule followup. Nodule size (mm)Low-risk patientHigh-risk patient<6 (single or multiple)No routine followup.Optional CT at 12 months. 6-8 (single or multiple)CT at 6-12 months, then optional CT at 18-24 mo.CT at 6-12 months, then CT at 18-24 months. >8 (single)CT, PET-CT, or biopsy at 3 months. Same as for low-risk pts. >8 (multiple)CT at 3-6 months, then optional CT at 18-24 mo.CT at 3-6 months, then CT at 18-24 months. Fleischner Society criteria for SUB-SOLID lung nodule followup. Solitary pure ground-glass nodules<6 mm (ground glass or part solid)No followup needed. 6 mm or larger (ground glass)CT at 6-12 months to confirm persistence, then CT every 2 years until 5 years.6 mm or larger (part solid)CT at 3-6 months to confirm persistence, then annual CT until 5 years if unchanged and solid component remains <6 mm. Multiple sub-solid nodules<6 mmCT at 3-6 months, then CT consider at 2 & 4 years for high risk patients. [address] at 3-6 months. Subsequent management based on most suspicious lesions. Recommendations do not apply to lung cancer screening, patients with immunosuppression, or patients with known primary cancer. Dictated by: Deepa Collins M.D. on 10/09/2022 at 17:46 Approved by: Deepa Collins M.D. on 10/09/2022 at 17:47
[2022-10-09 17:12] LABS: Magnesium 2.1 mg/dL (1.6-2.3)
--- NOTE | 2022-10-09 17:45 | PM.HP.1 ---
History of Present Illness History of Present Illness Date Patient Seen: 10/09/22 Time Patient Seen: 17:45 Date of Onset of Symptoms: 10/07/22 Chief complaint: SOB Narrative: This is a very pleasant 41-year-old female who is under my care for her primary care. She was last seen by me in December 23. She is hypertension and more recently has been diagnosed with reactive airway disease. She was hospitalized a month ago with a possible pneumonia and reactive airway disease. She was seen in the clinic in May and was placed on fluticasone long-acting beta agonist combo. Patient states she is been sick since last week. She attributes this to work that they have a prior and that this is giving her difficulty breathing and she is looking into other possible work. She does work 6 days a week is not able to take time off. She had progressive worsening shortness of breath with prompted her to seek emergency medical care was found to have O2 sat in the 80 percentile and working hard to breathe and stating only 2 words at a time before she became too breathless. She was given multiple albuterol treatments and 125 mg of Solu-Medrol. She was given magnesium is well and was doing better but was still on oxygen and required hospitalization for further treatment of respiratory failure due to asthma exacerbation. There was no evidence of pneumonia on x-ray and a CT scan was done to rule out PE and this showed pneumonia. Past medical history: 1. Hypertension 2. Mild hyperglycemia 3. Morbid obesity 4. Recent diagnosis of asthma 5. Nephrolithiasis without any recent problems Current medications amlodipine 10 mg daily and Dulera Allergies no known drug allergies Past surgical history: C-sections x2 Health related behavior: Patient does not drink alcohol. She does not smoke. She is not active Family history: Mom with asthma Sister with asthma and allergies Sister with hypertension x3 Social history: Patient is single and has 2 children who live with her Patient lives and works in [place] and has good family support 12 point review of systems is negative No fever, chills No chest pain No significant lower extremity edema Blood sugars have been good at home Blood pressures have been good at home but she does not give me reading No headache No exertional dyspnea PFSH Social History household members: family and children Smoking Status: Never smoker alcohol intake: current Meds Home Medications and Allergies Home Medications Medication Instructions Recorded Confirmed Type cholecalciferol (vitamin D3) 50 2,000 unit PO QDAY ##0 04/04/17 10/09/22 History mcg (2,000 unit) capsule (Vitamin D3) amlodipine 10 mg tablet 10 mg PO DAILY 09/08/22 10/09/22 History metformin 500 mg tablet 500 mg PO BID 09/08/22 10/09/22 History albuterol sulfate 90 mcg/actuation 2 puff inhalation Q6H PRN 09/09/22 10/09/22 Rx aerosol inhaler shortness of breath or wheezing #6.7 grams prednisone 20 mg tablet 60 mg PO DAILY #60 tabs 09/09/22 10/09/22 Rx Allergies Allergy/AdvReac Type Severity Reaction Status Date / Time No Known Drug Allergies Allergy Verified 10/09/22 14:32 Exam Vital Signs (past 8 hours): - 10/09/22 13:55 10/09/22 14:10 10/09/22 13:56 Temperature 97.8 F Pulse Rate 118 H 112 H Respiratory Rate 30 H 32 H Blood Pressure 269/139 H 269/139 H Pulse Oximetry 88 L 97 Oxygen Delivery Method Room Air Room Air Oxygen Flow Rate 0 Fraction of Inspired Oxygen 21 10/09/22 13:57 10/09/22 14:00 10/09/22 14:00 Temperature Pulse Rate 117 H 111 H Respiratory Rate 25 H Blood Pressure 211/107 H Pulse Oximetry 89 L 95 Oxygen Delivery Method Room Air Oxygen Flow Rate Fraction of Inspired Oxygen 10/09/22 14:15 10/09/22 14:30 10/09/22 14:30 Temperature Pulse Rate 107 H 109 H Respiratory Rate 28 H 27 H Blood Pressure 182/103 H Pulse Oximetry 99 99 Oxygen Delivery Method Oxygen Flow Rate Fraction of Inspired Oxygen 10/09/22 14:45 10/09/22 15:00 10/09/22 15:00 Temperature Pulse Rate 104 H 110 H Respiratory Rate 26 H 25 H Blood Pressure 190/119 H Pulse Oximetry 100 100 Oxygen Delivery Method Oxygen Flow Rate Fraction of Inspired Oxygen 10/09/22 15:15 10/09/22 15:30 10/09/22 15:30 Temperature Pulse Rate 110 H 113 H Respiratory Rate 26 H 29 H Blood Pressure 175/86 H Pulse Oximetry 100 99 Oxygen Delivery Method Nasal Cannula Oxygen Flow Rate Fraction of Inspired Oxygen 10/09/22 15:45 10/09/22 16:00 10/09/22 16:00 Temperature Pulse Rate 114 H 123 H Respiratory Rate 27 H 28 H Blood Pressure 229/129 H Pulse Oximetry 98 92 Oxygen Delivery Method Nasal Cannula Oxygen Flow Rate 2 Fraction of Inspired Oxygen 10/09/22 16:15 10/09/22 16:30 10/09/22 16:30 Temperature Pulse Rate 122 H 116 H Respiratory Rate 45 H 24 Blood Pressure 170/84 H Pulse Oximetry 93 89 L Oxygen Delivery Method Nasal Cannula Nasal Cannula Oxygen Flow Rate 2 2 Fraction of Inspired Oxygen Fraction of Inspired Oxygen 21 SaO2/FiO2 Ratio 461 Oxygen Delivery Method Nasal Cannula Oxygen Flow Rate 2 Narrative Exam Narrative: Patient is on 4 L nasal cannula oxygen. She is having tachypnea and now is able to speak in sentences but was not when she 1st came in. Blood pressure is elevated 180/100. Patient is afebrile vital signs stable otherwise HEENT is unremarkable Neck: Supple without adenopathy Chest: Patient with decreased breath sounds bibasilar with rhonchi and diffuse expiratory wheezes right greater than left Cor: Regular rate and rhythm with distant S1-S2 Abdomen: Positive bowel sounds, soft, nontender Extremities: 1+ pitting edema bilateral lower extremities, pulses intact Neurologic exam is nonfocal Skin no rashes Objective Labs 10/10/22 04:17 10/10/22 04:17 Labs: Laboratory Results - last 24 hr 10/09/22 10/09/22 10/09/22 14:00 14:08 14:08 WBC 12.0 H RBC 5.00 Hgb 11.8 L Hct 37.2 MCV 74.3 L MCH 23.5 L MCHC 31.7 RDW 18.2 H Plt Count 327 Neut % (Auto) 71.5 Lymph % (Auto) 18.1 L [place] % (Auto) 4.4 Eos % (Auto) 5.4 H Baso % (Auto) 0.6 Neut # (Auto) 8500 H Lymph # (Auto) 2200 [place] # (Auto) 500 Eos # (Auto) 600 H Baso # (Auto) 100 PT 11.3 INR 1.0 Sodium Potassium Chloride Carbon Dioxide BUN Creatinine Estimated GFR BUN/Creatinine Ratio Glucose Lactate Calcium Magnesium Total Bilirubin AST ALT Alkaline Phosphatase Troponin I NT-Pro-B Natriuret Pep Total Protein Albumin Globulin Albumin/Globulin Ratio Chlamy pneumoniae PCR Not detected Adenovirus (PCR) Not detected B. pertussis DNA (PCR) Not detected B.parapertussis DNA PCR Not detected Coronavirus OC43 (PCR) Not detected Coronavirus HKU1 (PCR) Not detected Coronavirus 229E (PCR) Not detected SARS-CoV-2 (PCR) Not detected Coronavirus NL63 (PCR) Not detected Human Metapneumovir PCR Not detected Influenza Type A (PCR) Not detected Influenza Type B (PCR) Not detected M. pneumoniae (PCR) Not detected Parainfluenza 1 (PCR) Not detected Parainfluenza 2 (PCR) Not detected Parainfluenza 3 (PCR) Not detected Parainfluenza 4 (PCR) Not detected RSV (PCR) Not detected Entero/Rhino (PCR) Not detected 10/09/22 10/09/22 10/09/22 14:08 14:08 14:08 WBC RBC Hgb Hct MCV MCH MCHC RDW Plt Count Neut % (Auto) Lymph % (Auto) [place] % (Auto) Eos % (Auto) Baso % (Auto) Neut # (Auto) Lymph # (Auto) [place] # (Auto) Eos # (Auto) Baso # (Auto) PT INR Sodium 137 Potassium 3.8 Chloride 102 Carbon Dioxide 29 BUN 13 Creatinine 0.58 Estimated GFR > 60 BUN/Creatinine Ratio 22.4 H Glucose 182 H Lactate 1.0 Calcium 8.8 Magnesium 2.1 Total Bilirubin 0.4 AST 24 ALT 36 H Alkaline Phosphatase 108 Troponin I < 0.012 NT-Pro-B Natriuret Pep < 11 Total Protein 7.4 Albumin 4.0 Globulin 3.4 Albumin/Globulin Ratio 1.2 Chlamy pneumoniae PCR Adenovirus (PCR) B. pertussis DNA (PCR) B.parapertussis DNA PCR Coronavirus OC43 (PCR) Coronavirus HKU1 (PCR) Coronavirus 229E (PCR) SARS-CoV-2 (PCR) Coronavirus NL63 (PCR) Human Metapneumovir PCR Influenza Type A (PCR) Influenza Type B (PCR) M. pneumoniae (PCR) Parainfluenza 1 (PCR) Parainfluenza 2 (PCR) Parainfluenza 3 (PCR) Parainfluenza 4 (PCR) RSV (PCR) Entero/Rhino (PCR) Assessment & Plan Assessment & Plan narrative: 41-year-old female admitted for acute respiratory failure due to asthma exacerbation Plan: Will admit to the hospital Will continue IV Solu-Medrol Will consult respiratory therapy Will continue with albuterol and supplemental oxygen Will admit to the ICU for further monitoring Assessment 2. Hypertension Plan: Continue amlodipine 10 mg daily and monitor blood pressure Assessment 3. Family history of diabetes and hyperglycemia Plan: Will monitor blood sugars Assessment 4. Pneumonia, community-acquired Plan: Will treat with ceftriaxone Assessment 5. History of nephrolithiasis Code status is full code 75 minutes spent with patient in discussing with physician, nursing, meeting with patient, reviewing chart, formulation of plan and documentation of this
[2022-10-09] MEDS: cefTRIAXone 2,000 MG in SODIUM CHLORIDE 0.9% 100 ML 200 MG IV (18:45)
[2022-10-09] MEDS: LORazepam 2 MG/ML INJ 0.5 MG IV (18:45)
[2022-10-09 20:11] LABS: MRSA (Nasal) PCR Not Detected (Not Detect)
[2022-10-09] MEDS: AMLODIPINE 5 MG TABLET 10 MG PO (20:55)
[2022-10-09] MEDS: ENOXAPARIN 40 MG/0.4 ML SYRINGE SUBCUT (20:55)
[2022-10-09] MEDS: SODIUM CHLORIDE 0.9% FLUSH 10 ML IV (20:56)
[2022-10-09] MEDS: methylPREDNISolone 125 MG/2 ML VIAL 60 MG IV (22:11)
[2022-10-09] MEDS: ALBUTEROL 2.5 MG/3 ML NEB (ADULT) INH (22:12)
[2022-10-10] VITALS (14 sets, daily range): BP systolic 146–176; BP diastolic 92–107; PULSE 94–111; RESP 16–29; TEMP 36.2–37; O2SAT 91–95
[2022-10-10 04:49] LABS: Add Manual Diff / Slide Review NO; Basophils Absolute Auto 0 /uL (0-100); Basophils Percent Auto 0.2 % (0-2); Eosinophils Absolute Auto 0 /uL (0-450); Hemoglobin 11.4 g/dL (12.0-16.0); Lymphocytes Absolute Auto 1200 /uL (1100-4500); Lymphocytes Percent Auto 8.9 % (25-40); Mean Corpuscular HGB Conc 31.7 % (30-36); Mean Corpuscular Hemoglobin 23.4 PG (26-34); Mean Corpuscular Volume 73.7 fL (80-100); Monocytes Absolute Auto 100 /uL (0-900); Monocytes Percent Auto 0.5 % (3-14); Neutrophils Absolute Auto 12100 /uL (1500-7000); Neutrophils Percent Auto 90.4 % (50-75); Platelet Count 313 X10^3/uL (150-400); Red Blood Cell Count 4.88 X10^6/uL (4.0-5.2); Red Cell Distribution Width 18.3 % (11.6-14.8); White Blood Cell Count 13.4 X10^3/uL (4.5-11.0)
[2022-10-10 04:52] LABS: BUN Creatinine Ratio 20.8 (6-22); Blood Urea Nitrogen 11 mg/dL (7-17); Calcium 8.8 mg/dL (8.4-10.2); Carbon Dioxide 29 mmol/L (22-32); Chloride 102 mmol/L (98-107); Estimated Glomerular Filt Rate > 60 mL/min (>60); Glucose 236 mg/dL (70-100); HEMOLYSIS < 15 (0-50); Potassium 4.2 mmol/L (3.4-5.1); Sodium 135 mmol/L (137-145)
[2022-10-10] MEDS: methylPREDNISolone 125 MG/2 ML VIAL 60 MG IV ×3 (06:05→21:54)
--- NOTE | 2022-10-10 06:20 | PC.NURSE ---
Musical Instrument Maker Or Repairer Note-A/Ox4, uses call light for assist to BR, has mild shortness of breath and non-productive cough, faint wheezes to left, coarse wheezes to right, on 4-5L NC, SpO2 >92%, receiving scheduled nebs and Solu-Medrol. ST, HTN, see vital trends, routine amlodipine given, denies pain.
[2022-10-10] MEDS: ALBUTEROL 2.5 MG/3 ML NEB (ADULT) INH ×5 (06:21→23:06)
[2022-10-10] MEDS: ENOXAPARIN 40 MG/0.4 ML SYRINGE SUBCUT ×2 (08:09→20:00)
[2022-10-10] MEDS: SODIUM CHLORIDE 0.9% FLUSH 10 ML IV ×2 (08:09→20:02)
[2022-10-10] MEDS: AMLODIPINE 5 MG TABLET 10 MG PO (08:09)
--- NOTE | 2022-10-10 08:48 | PM.PN.1 ---
Subjective Subjective Date Patient Seen: 10/10/22 Time Patient Seen: 08:48 Interval history: Patient is feeling much better today. She is breathing better but is still on 4 L nasal cannula oxygen. Her blood sugar this morning was in the 200s. She states that she was not able to sleep last night. She denies any abdominal pain or chest pain. She is coughing. She was able to get up and go to the bathroom without oxygen and did not become tachypneic or increased work of breathing. Twelve point review of systems is negative Exam Vital Signs (past 8 hours): - 10/10/22 01:00 10/10/22 02:00 10/10/22 03:00 Pulse Rate 102 H 103 H 100 H Respiratory Rate 22 25 H 27 H Blood Pressure 163/97 H 159/92 H 157/98 H Pulse Oximetry 94 94 94 Oxygen Delivery Method Oxygen Flow Rate 5 5 5 Fraction of Inspired Oxygen 10/10/22 04:00 10/10/22 04:00 10/10/22 05:00 Pulse Rate 103 H 101 H Respiratory Rate 29 H 24 Blood Pressure 176/106 H 175/107 H Pulse Oximetry 95 95 Oxygen Delivery Method Room Air Nasal Cannula Oxygen Flow Rate 5 4 Fraction of Inspired Oxygen 10/10/22 06:00 10/10/22 06:21 Pulse Rate 94 H 98 H Respiratory Rate 24 16 Blood Pressure 165/106 H Pulse Oximetry 94 94 Oxygen Delivery Method Nasal Cannula Oxygen Flow Rate 4 4 Fraction of Inspired Oxygen 36 Fraction of Inspired Oxygen 36 SaO2/FiO2 Ratio 261 Oxygen Delivery Method Nasal Cannula Oxygen Flow Rate 4 Narrative Exam Narrative: Afebrile blood pressure is 160 to 180 over 0s. Patient has not had her amlodipine nausea this morning Patient is alert and oriented and talking freely. HEENT within normal limits Neck: Supple Chest: Rhonchi bibasilar with slight wheeze and no crackles Cor: Regular rate and rhythm distant S1-S2 Extremities 1+ pitting edema Abdomen positive bowel sounds, soft, nontender, nondistended Objective Labs 10/10/22 04:17 10/10/22 04:17 Labs: Laboratory Results - last 24 hr 10/09/22 10/09/22 10/09/22 14:00 14:08 14:08 WBC 12.0 H RBC 5.00 Hgb 11.8 L Hct 37.2 MCV 74.3 L MCH 23.5 L MCHC 31.7 RDW 18.2 H Plt Count 327 Neut % (Auto) 71.5 Lymph % (Auto) 18.1 L [place] % (Auto) 4.4 Eos % (Auto) 5.4 H Baso % (Auto) 0.6 Neut # (Auto) 8500 H Lymph # (Auto) 2200 [place] # (Auto) 500 Eos # (Auto) 600 H Baso # (Auto) 100 PT 11.3 INR 1.0 Sodium Potassium Chloride Carbon Dioxide BUN Creatinine Estimated GFR BUN/Creatinine Ratio Glucose Lactate Calcium Magnesium Total Bilirubin AST ALT Alkaline Phosphatase Troponin I NT-Pro-B Natriuret Pep Total Protein Albumin Globulin Albumin/Globulin Ratio Nasal Screen MRSA (PCR) Chlamy pneumoniae PCR Not detected Adenovirus (PCR) Not detected B. pertussis DNA (PCR) Not detected B.parapertussis DNA PCR Not detected Coronavirus OC43 (PCR) Not detected Coronavirus HKU1 (PCR) Not detected Coronavirus 229E (PCR) Not detected SARS-CoV-2 (PCR) Not detected Coronavirus NL63 (PCR) Not detected Human Metapneumovir PCR Not detected Influenza Type A (PCR) Not detected Influenza Type B (PCR) Not detected M. pneumoniae (PCR) Not detected Parainfluenza 1 (PCR) Not detected Parainfluenza 2 (PCR) Not detected Parainfluenza 3 (PCR) Not detected Parainfluenza 4 (PCR) Not detected RSV (PCR) Not detected Entero/Rhino (PCR) Not detected 10/09/22 10/09/22 10/09/22 14:08 14:08 14:08 WBC RBC Hgb Hct MCV MCH MCHC RDW Plt Count Neut % (Auto) Lymph % (Auto) [place] % (Auto) Eos % (Auto) Baso % (Auto) Neut # (Auto) Lymph # (Auto) [place] # (Auto) Eos # (Auto) Baso # (Auto) PT INR Sodium 137 Potassium 3.8 Chloride 102 Carbon Dioxide 29 BUN 13 Creatinine 0.58 Estimated GFR > 60 BUN/Creatinine Ratio 22.4 H Glucose 182 H Lactate 1.0 Calcium 8.8 Magnesium 2.1 Total Bilirubin 0.4 AST 24 ALT 36 H Alkaline Phosphatase 108 Troponin I < 0.012 NT-Pro-B Natriuret Pep < 11 Total Protein 7.4 Albumin 4.0 Globulin 3.4 Albumin/Globulin Ratio 1.2 Nasal Screen MRSA (PCR) Chlamy pneumoniae PCR Adenovirus (PCR) B. pertussis DNA (PCR) B.parapertussis DNA PCR Coronavirus OC43 (PCR) Coronavirus HKU1 (PCR) Coronavirus 229E (PCR) SARS-CoV-2 (PCR) Coronavirus NL63 (PCR) Human Metapneumovir PCR Influenza Type A (PCR) Influenza Type B (PCR) M. pneumoniae (PCR) Parainfluenza 1 (PCR) Parainfluenza 2 (PCR) Parainfluenza 3 (PCR) Parainfluenza 4 (PCR) RSV (PCR) Entero/Rhino (PCR) 10/09/22 10/10/22 10/10/22 18:00 04:17 04:17 WBC 13.4 H RBC 4.88 Hgb 11.4 L Hct 36.0 MCV 73.7 L MCH 23.4 L MCHC 31.7 RDW 18.3 H Plt Count 313 Neut % (Auto) 90.4 H Lymph % (Auto) 8.9 L [place] % (Auto) 0.5 L Eos % (Auto) 0.0 L Baso % (Auto) 0.2 Neut # (Auto) 66459 H Lymph # (Auto) 1200 [place] # (Auto) 100 Eos # (Auto) 0 Baso # (Auto) 0 PT INR Sodium 135 L Potassium 4.2 Chloride 102 Carbon Dioxide 29 BUN 11 Creatinine 0.53 Estimated GFR > 60 BUN/Creatinine Ratio 20.8 Glucose 236 H Lactate Calcium 8.8 Magnesium Total Bilirubin AST ALT Alkaline Phosphatase Troponin I NT-Pro-B Natriuret Pep Total Protein Albumin Globulin Albumin/Globulin Ratio Nasal Screen MRSA (PCR) Not detected Chlamy pneumoniae PCR Adenovirus (PCR) B. pertussis DNA (PCR) B.parapertussis DNA PCR Coronavirus OC43 (PCR) Coronavirus HKU1 (PCR) Coronavirus 229E (PCR) SARS-CoV-2 (PCR) Coronavirus NL63 (PCR) Human Metapneumovir PCR Influenza Type A (PCR) Influenza Type B (PCR) M. pneumoniae (PCR) Parainfluenza 1 (PCR) Parainfluenza 2 (PCR) Parainfluenza 3 (PCR) Parainfluenza 4 (PCR) RSV (PCR) Entero/Rhino (PCR) PFSH Social History household members: family and children Smoking Status: Never smoker alcohol intake: current Assessment & Plan Assessment & Plan narrative: 41-year-old female with acute respiratory distress related to pneumonia and asthma, improved Plan: Continue ceftriaxone for treating pneumonia Continue on IV steroids Wean oxygen as able Continue with RT Assessment 2. Family history of diabetes with history of hyperglycemia and obesity and elevated blood sugars related to steroids Plan: Will check blood sugars and give sliding scale insulin Assessment 3. Hypertension not well-controlled Plan: Will go ahead and give outpatient amlodipine 10 mg daily. If blood pressure does not improve then we will add antihypertensive Assessment 4. History of nephrolithiasis without any current symptoms Plan: Will follow 55 minutes spent with patient reviewing chart meeting with patient formulating a plan, discussing with nursing and documentation Quality VTE Deep Vein Thrombosis/Pulmonary Embolism Present on Admission: No
--- NOTE | 2022-10-10 09:40 | PC.NURSE ---
Day shift: Pt weaned off 4L NC. On RA with saturation 92%-94%. Hypertension present, provider aware and is at bedside. Care ongoing.
[2022-10-10] MEDS: cefTRIAXone 2,000 MG in SODIUM CHLORIDE 0.9% 100 ML 200 MG IV (09:45)
--- NOTE | 2022-10-10 10:31 | CM.DANOTE ---
DCP Assessment: ORACIO and RN introduced self and role. Patient is a 41 yr old female admitted for respiratory distress. Patient was A/Ox4 at time of visit. Patient currently lives alone in ground level apartment in [place]. Patient has family nearby (sister) to assist if needed at discharge. Patient reports being independent with ADLs and drives at baseline. PCP: Isabella Almazan. Insurance: [employer] and self pay P: Home when medically stable. No identified discharge planning needs at this time. CM will continue to follow to assist with any needs prior to discharge. ORACIO Ivey Discharge Planning/Care Management CM Discharge Assessment Start: 10/10/22 10:25 Freq: Status: Active Protocol: Document 10/10/22 10:26 SL (Rec: 10/10/22 10:30 [id number]) Discharge Planning Assessment Assigned Junior Automation Engineer ORACIO Ivey DPOA/Assigned Designee Name Lakshmi Francois (sister) Contact Information [phone] Advance Directives? No History Provided By Patient,Medical Record Has Patient been admitted in last 30 Yes days? Comment Patient last discharged on 09/09. Prior Living Arrangements House Household Members none Type of transporation used prior to Drives own vehicle admit Independent with ADL's Yes Is patient alert and oriented? Yes Caregiver for Another No Barriers to Discharge No Discharge Plan Home Referrals Initiated None needed Please Provide Date Initial DC 10/10/22 Assessment Was Performed
[2022-10-10] MEDS: INSULIN LISPRO 100 UNIT/ML 3ML VIAL SUBCUT ×3 (13:13→20:01)
[2022-10-10] MEDS: ACETAMINOPHEN 325 MG TABLET 650 MG PO (19:59)
[2022-10-11] VITALS (55 sets, daily range): BP systolic 169–202; BP diastolic 95–120; PULSE 81–112; RESP 19–20; TEMP 35.8–36.6; O2SAT 91–97
[2022-10-11 05:44] LABS: Add Manual Diff / Slide Review NO; Basophils Absolute Auto 0 /uL (0-100); Basophils Percent Auto 0.2 % (0-2); Eosinophils Absolute Auto 0 /uL (0-450); Hematocrit 34.6 % (36-46); Lymphocytes Absolute Auto 1100 /uL (1100-4500); Lymphocytes Percent Auto 6.4 % (25-40); Mean Corpuscular HGB Conc 31.8 % (30-36); Mean Corpuscular Hemoglobin 23.5 PG (26-34); Mean Corpuscular Volume 73.8 fL (80-100); Monocytes Absolute Auto 300 /uL (0-900); Monocytes Percent Auto 1.5 % (3-14); Neutrophils Absolute Auto 15600 /uL (1500-7000); Neutrophils Percent Auto 91.9 % (50-75); Platelet Count 314 X10^3/uL (150-400); Red Blood Cell Count 4.69 X10^6/uL (4.0-5.2); White Blood Cell Count 16.9 X10^3/uL (4.5-11.0)
[2022-10-11 05:56] LABS: BUN Creatinine Ratio 26.5 (6-22); Blood Urea Nitrogen 18 mg/dL (7-17); Calcium 8.7 mg/dL (8.4-10.2); Carbon Dioxide 27 mmol/L (22-32); Chloride 100 mmol/L (98-107); Estimated Glomerular Filt Rate > 60 mL/min (>60); Glucose 322 mg/dL (70-100); HEMOLYSIS < 15 (0-50); Potassium 3.7 mmol/L (3.4-5.1); Sodium 134 mmol/L (137-145)
[2022-10-11] MEDS: methylPREDNISolone 125 MG/2 ML VIAL 60 MG IV (06:19)
[2022-10-11] MEDS: SODIUM CHLORIDE 0.9% FLUSH 10 ML IV ×2 (06:19→09:14)
[2022-10-11] MEDS: ALBUTEROL 2.5 MG/3 ML NEB (ADULT) INH (07:08)
[2022-10-11] MEDS: AMLODIPINE 5 MG TABLET 10 MG PO (08:18)
[2022-10-11] MEDS: ENOXAPARIN 40 MG/0.4 ML SYRINGE SUBCUT (08:18)
[2022-10-11] MEDS: cefTRIAXone 2,000 MG in SODIUM CHLORIDE 0.9% 100 ML 200 MG IV (08:19)
[2022-10-11] MEDS: INSULIN LISPRO 100 UNIT/ML 3ML VIAL SUBCUT (08:22)
--- NOTE | 2022-10-11 08:53 | P.DS_ITS ---
History of Present Illness History of Present Illness Date Patient Seen: 10/11/22 Time Patient Seen: 08:54 Date of Onset of Symptoms: 10/04/22 Chief complaint: SOB Narrative: This is a very pleasant 41-year-old female who is under my care for her primary care. She was last seen by me in December 23. She is hypertension and more recently has been diagnosed with reactive airway disease. She was hospitalized a month ago with a possible pneumonia and reactive airway disease. She was seen in the clinic in May and was placed on fluticasone long-acting beta agonist combo. Patient states she is been sick since last week. She attributes this to work that they have a prior and that this is giving her difficulty breathing and she is looking into other possible work. She does work 6 days a week is not able to take time off. She had progressive worsening shortness of breath with prompted her to seek emergency medical care was found to have O2 sat in the 80 percentile and working hard to breathe and stating only 2 words at a time before she became too breathless. She was given multiple albuterol treatments and 125 mg of Solu-Medrol. She was given magnesium is well and was doing better but was still on oxygen and required hospitalization for further treatment of respiratory failure due to asthma exacerbation. There was no evidence of pneumonia on x-ray and a CT scan was done to rule out PE and this showed pneumonia. Past medical history: 1. Hypertension 2. Mild hyperglycemia 3. Morbid obesity 4. Recent diagnosis of asthma 5. Nephrolithiasis without any recent problems Current medications amlodipine 10 mg daily and Dulera Allergies no known drug allergies Past surgical history: C-sections x2 Health related behavior: Patient does not drink alcohol. She does not smoke. She is not active Family history: Mom with asthma Sister with asthma and allergies Sister with hypertension x3 Social history: Patient is single and has 2 children who live with her Patient lives and works in [employer] and has good family support 12 point review of systems is negative No fever, chills No chest pain No significant lower extremity edema Blood sugars have been good at home Blood pressures have been good at home but she does not give me reading No headache No exertional dyspnea Discharge Providers Provider Date of admission: 10/09/22 17:39 Discharge Date: 10/11/22 Primary care physician: Isabella Almazan MD Consults: Respiratory therapy Discharge provider: Isabella Almazan MD Summary Hospital Course Discharge Diagnosis: 1. Community-acquired pneumonia 2. Reactive airway disease exacerbation 3. Acute respiratory failure, improved 4. Hypertension not well-controlled 5. Hyperglycemia exacerbated by intravenous steroids 6. Leukocytosis suspect related to IV steroids Hospital Course: Patient admitted with above diagnoses and treated with IV ceftriaxone and IV Solu-Medrol and nebulizers. Patient was placed on sliding scale insulin due to hyperglycemia suspect that this was worsened by IV steroids. Patient's outpatient antihypertensive regimen was started although lisinopril was not and will be started as outpatient. Patient had improvement in her condition. She was discharged home in improved condition. Status at Discharge Cognitive/behavioral status at discharge: oriented Functional status at discharge: independent ambulation Overall status at discharge: patient is progressing back to baseline Exam Vital Signs (past 8 hours): - 10/11/22 04:00 10/11/22 07:10 Temperature 97.2 F L Pulse Rate 112 H Respiratory Rate 19 Blood Pressure 181/107 H Pulse Oximetry 94 93 Oxygen Delivery Method Room Air Oxygen Flow Rate 0 Fraction of Inspired Oxygen 36 SaO2/FiO2 Ratio 261 Oxygen Delivery Method Room Air Oxygen Flow Rate 0 Narrative Exam Narrative: Afebrile and blood pressure 160/100 Patient is resting comfortably in hospital bed with no increased work of breathing. Stable on room air HEENT unremarkable Neck supple Chest: Diffuse expiratory wheezes with some rhonchi left base Cor: Regular rate and rhythm with distant S1-S2 Abdomen benign Extremities trace to 1+ pitting edema Neurologic exam nonfocal Objective Labs 10/11/22 04:32 10/11/22 04:32 Labs: Laboratory Results - last 24 hr 10/11/22 10/11/22 04:32 04:32 WBC 16.9 H RBC 4.69 Hgb 11.0 L Hct 34.6 L MCV 73.8 L MCH 23.5 L MCHC 31.8 RDW 18.0 H Plt Count 314 Neut % (Auto) 91.9 H Lymph % (Auto) 6.4 L [place] % (Auto) 1.5 L Eos % (Auto) 0.0 L Baso % (Auto) 0.2 Neut # (Auto) 90673 H Lymph # (Auto) 1100 [place] # (Auto) 300 Eos # (Auto) 0 Baso # (Auto) 0 Sodium 134 L Potassium 3.7 Chloride 100 Carbon Dioxide 27 BUN 18 H Creatinine 0.68 Estimated GFR > 60 BUN/Creatinine Ratio 26.5 H Glucose 322 H Calcium 8.7 PFSH Social History household members: none Smoking Status: Never smoker alcohol intake: current Discharge Assessment & Plan Assessment and Plan Assessment: 1. Community-acquired pneumonia 2. Reactive airway disease exacerbation 3. Acute respiratory failure, improved 4. Hypertension not well-controlled 5. Hyperglycemia exacerbated by intravenous steroids 6. Leukocytosis suspect related to IV steroids 7. Obesity, morbid Plan of Treatment: Discharged home in improved condition No work until she follows up with me next week. There is some concern that the prior at work is exacerbating her asthma. Overall she is had noncompliance has not followed through with treatment of her asthma. We will switch her over to prednisone she will do 40 mg for 3 days and then 20 mg for 5 days and then 20 mg every other day for 5 days. We will stop ceftriaxone and treat her with Augmentin twice daily for 10 days Will instruct her on inhaler use and will continue nebulizer at home. Will start her on metformin for hyperglycemia Will continue amlodipine 10 mg daily as outpatient and will reinitiate lisinopril/hydrochlorothiazide. She will monitor her blood pressure and blood sugar. She will follow up with me next Sunday at 10:15 a.m. 35 minutes was spent with patient in discharge Discharge Plan Discharge Plan Patient Disposition: Home Discharge orders & Medications Prescriptions: New prednisone 20 mg Tablet 40 mg PO DAILY Qty: 10 0RF amoxicillin-pot clavulanate 875-125 mg Tablet 1 tab PO BID Qty: 20 0RF Continued cholecalciferol (vitamin D3) [Vitamin D3] 2,000 UNIT capsule 2,000 unit PO QDAY Qty: 0 amlodipine 10 mg tablet 10 mg PO DAILY Patient Comments: take 1 tablet by mouth once daily metformin 500 mg tablet 500 mg PO BID Patient Comments: take 1 tablet by mouth twice a day before meals for diabetes albuterol sulfate 90 mcg/actuation HFA aerosol inhaler 2 puff inhalation Q6H PRN (Reason: shortness of breath or wheezing) Qty: 6.7 6RF Discontinued prednisone 20 mg Tablet 60 mg PO DAILY Qty: 60 0RF Follow up/Referrals: Isabella Almazan MD [Primary Care Provider] - Visit Report/Discharge Packet Stand Alone Forms: Patient Portal/API, Stroke Signs & Symptoms Discharge Data Primary Care Provider: Isabella Almazan VTE Deep Vein Thrombosis/Pulmonary Embolism Present on Admission: No
[2022-10-11] MEDS: predniSONE 20 MG TABLET 40 MG PO (09:13)
[2022-10-11] MEDS: AMOXICILLIN/CLAV 875/125 MG 1 TAB PO (09:14)
--- NOTE | 2022-10-11 09:26 | PC.NURSE ---
No significant changes overnight. Pt AAOx3 with easy WOB. Sitting up in bed watching TV. Breakfast eaten. Dr Cardenas in to see and plan to DC on RX's and follow up with Dr Cardenas 10/17 at 1015 AM. Pt sister coming to pick her up. IV DC'd.
--- NOTE | 2022-10-11 09:48 | PC.NURSE ---
Unable to locate RX's for Augmentin and Prednisone that were documented as printed by Dr Cardenas. Called into [facility] for patient.
== END 2022-10-11 09:51 | disposition home or self-care (01) | DRG 193 ==
LOC: ED 14:50 → AC 17:40 → ICU 10-10 06:16 → AC 10-10 11:56
PROVIDERS: Admitting Provider Family Medicine; Emergency Provider Emergency Medicine; PCP Family Medicine; Referring Provider Emergency Medicine; Visit Provider Family Medicine
DX: J18.9 Pneumonia, unspecified organism (principal); J96.00 Acute respiratory failure, unspecified whether with hypoxia or hypercapnia; J45.901 Unspecified asthma with (acute) exacerbation; I10 Essential (primary) hypertension; R73.9 Hyperglycemia, unspecified; T38.0X5A Adverse effect of glucocorticoids and synthetic analogues, initial encounter; Z20.822 Contact with and (suspected) exposure to COVID-19; Z83.3 Family history of diabetes mellitus
CPT/HCPCS: 36415; 71045; 71275; 80048; 80053; 82962; 83605; 83735; 83880; 84484; 85025; 85610; 87633; 87797; 93005; 94150; 94640; 96365; 96375; 99285; J0696; J1650; J1815; J2060; J2930; J3475; J7613; Q9967

== ENCOUNTER → 2022-11-01 12:50 | Outpatient (CLI) | payer OTHER, SELFPAY ==
[2022-10-09 18:26] VITALS: BMI 44.6
--- NOTE | 2022-11-01 | DI.RAD.S_ITS ---
PROCEDURE: XR CHEST 2V INDICATIONS: Pneumonia, unspecified organism TECHNIQUE: 2 views of the chest were acquired. COMPARISON: [facility], CT, CT ANGIO CHEST PE PROTOCOL, 10/09/2022, 17:03. [facility], CR, XR CHEST 1V, 10/09/2022, 13:56. FINDINGS: Surgical changes and devices: None. Lungs and pleura: Lungs appear clear. No pleural effusions or pneumothorax. Mediastinum: Mediastinal contours are normal. Heart size is normal. Bones and chest wall: No suspicious bony abnormalities. Soft tissues appear unremarkable. IMPRESSION: No acute cardiopulmonary abnormality. Dictated by: Stephen Pereira M.D. on 11/01/2022 at 16:40 Approved by: Stephen Pereira M.D. on 11/01/2022 at 16:42
== END ==
PROVIDERS: Family Provider Family Medicine; PCP Family Medicine; Referring Provider Family Medicine; Visit Provider Family Medicine
DX: J18.9 Pneumonia, unspecified organism (principal)
CPT/HCPCS: 71046

== ENCOUNTER → 2023-09-15 12:12 | Outpatient (CLI) | payer OTHER, SELFPAY ==
[2022-10-09 18:26] VITALS: BMI 44.6
[2023-09-15 13:15] LABS: Add Manual Diff / Slide Review NO; Basophils Absolute Auto 100 /uL (0-100); Basophils Percent Auto 0.7 % (0-2); Eosinophils Absolute Auto 400 /uL (0-450); Eosinophils Percent Auto 4.4 % (2-4); Hematocrit 34.6 % (36-46); Hemoglobin 10.8 g/dL (12.0-16.0); Lymphocytes Absolute Auto 2400 /uL (1100-4500); Lymphocytes Percent Auto 25.6 % (25-40); Mean Corpuscular HGB Conc 31.4 % (30-36); Mean Corpuscular Hemoglobin 22.7 PG (26-34); Mean Corpuscular Volume 72.5 fL (80-100); Monocytes Absolute Auto 500 /uL (0-900); Neutrophils Absolute Auto 6100 /uL (1500-7000); Neutrophils Percent Auto 64.3 % (50-75); Platelet Count 397 X10^3/uL (150-400); Red Blood Cell Count 4.77 X10^6/uL (4.0-5.2); Red Cell Distribution Width 15.7 % (11.6-14.8); White Blood Cell Count 9.4 X10^3/uL (4.5-11.0)
[2023-09-15 13:43] LABS: Alanine Aminotransferase 25 IU/L (<35); Albumin 3.9 g/dL (3.5-5.0); Albumin Globulin Ratio 1.3 (1.0-2.8); Alkaline Phosphatase 94 U/L (38-126); Aspartate Aminotransferase 21 IU/L (14-36); BUN Creatinine Ratio 25.4 (6-22); Bilirubin Total 0.3 mg/dL (0.2-1.3); Blood Urea Nitrogen 16 mg/dL (7-17); Calcium 9.1 mg/dL (8.4-10.2); Carbon Dioxide 27 mmol/L (22-32); Chloride 104 mmol/L (98-107); Cholesterol 179 mg/dL (140-199); Estimated Glomerular Filt Rate > 60 mL/min (>60); Glucose 147 mg/dL (70-100); HDL Cholesterol 41 mg/dL (40-60); HEMOLYSIS < 15 (0-50); LDL Cholesterol Calculated 105 mg/dL (<100); Potassium 4.4 mmol/L (3.4-5.1); Sodium 136 mmol/L (137-145); Total Protein 6.9 g/dL (6.3-8.2); Triglycerides 164 mg/dL (35-150)
[2023-09-15 14:11] LABS: Thyroid Stimulating Hormone 0.922 uIU/mL (0.47-4.68)
[2023-09-15 14:34] LABS: Creatinine Urine Random 124.1 mg/dL
[2023-09-15 14:39] LABS: Microalbumi Creatinin Ratio Ur 60.4 ug/mg CR (<30); Microalbumin Urine Random 7.5 mg/dL (0-1.6)
== END ==
PROVIDERS: Family Provider Family Medicine; PCP Family Medicine; Referring Provider Family Medicine; Visit Provider Family Medicine
DX: Z00.00 Encounter for general adult medical examination without abnormal findings (principal); Z13.0 Encounter for screening for diseases of the blood and blood-forming organs and certain disorders involving the immune mechanism; E78.00 Pure hypercholesterolemia, unspecified; J45.41 Moderate persistent asthma with (acute) exacerbation; I10 Essential (primary) hypertension; E11.9 Type 2 diabetes mellitus without complications; N20.0 Calculus of kidney; D50.9 Iron deficiency anemia, unspecified; R71.8 Other abnormality of red blood cells; Z68.42 Body mass index [BMI] 45.0-49.9, adult
CPT/HCPCS: 36415; 80053; 80061; 82043; 82570; 83036; 84443; 85025

== ENCOUNTER → 2023-10-06 10:54 | Outpatient (CLI) | payer OTHER, SELFPAY ==
[2022-10-09 18:26] VITALS: BMI 44.6
--- NOTE | 2023-10-06 10:57 | DI.CT.S_ITS ---
PROCEDURE: CT CHEST WO CON INDICATIONS: PULMONARY NODULE TECHNIQUE: Noncontrast 5 mm thick sections acquired from the pulmonary apices to the posterior costophrenic angles. 1 mm lung window, 5 mm thick coronal and sagittal and 7 mm axial MIP reformats were then acquired. For radiation dose reduction, the following was used: automated exposure control, adjustment of mA and/or kV according to patient size. COMPARISON: [facility], CT, CT ANGIO CHEST PE PROTOCOL, 10/09/2022, 17:03. FINDINGS: Image quality: Diagnostic Lungs and pleura: Right middle lobe nodule () measures 4 mm, similar compared to 10/09/2022. No other new or enlarging nodule. No airspace disease or pleural effusions. Mediastinum, heart, and esophagus: Esophagus is unremarkable. Heart size is at the upper limit of normal. No pathologic lymph nodes by size criteria on this noncontrast study. Chest wall and thyroid: Unremarkable Upper abdomen: No gross abnormality on these noncontrast images. Bones: Mild degenerative changes. IMPRESSION: Right middle lobe pulmonary nodule measures 4 mm and is similar to 10/09/2022 (3/). Further follow-up to establish 2 year stability may be obtained at clinical discretion if the patient is considered high risk for malignancy. Dictated by: Isaias Whitehead M.D. on 10/07/2023 at 8:01 Approved by: Isaias Whitehead M.D. on 10/07/2023 at 8:04
== END ==
PROVIDERS: Family Provider Family Medicine; PCP Family Medicine; Referring Provider Family Medicine; Visit Provider Family Medicine
DX: R91.1 Solitary pulmonary nodule (principal)
CPT/HCPCS: 71250

== ENCOUNTER → 2024-02-06 13:35 | Outpatient (ROUT) | payer OTHER, SELFPAY ==
[2022-10-09 18:26] VITALS: BMI 44.6
[2024-02-06 14:16] LABS: Influenza A - CEPHEID Flu A NEGATIVE (NEGATIVE); Influenza B - CEPHEID Flu B NEGATIVE (NEGATIVE); Respiratory Syncytial Virus Negative (Negative)
[2024-02-06 14:17] LABS: COVID-19 CEPHEID 4-PLEX PCR Negative (Negative)
== END ==
PROVIDERS: Family Provider Family Medicine; PCP Family Medicine; Visit Provider Family Medicine
DX: R05.1 Acute cough (principal); R06.2 Wheezing
CPT/HCPCS: 0241U

== ENCOUNTER → 2024-02-13 09:34 | Outpatient (CLI) | payer OTHER, SELFPAY ==
[2022-10-09 18:26] VITALS: BMI 44.6
--- NOTE | 2024-02-13 09:36 | DI.RAD.S_ITS ---
PROCEDURE: XR CHEST 2V INDICATIONS: Acute upper respiratory infection, unspecified TECHNIQUE: 2 views of the chest were acquired. COMPARISON: [facility], CR, XR CHEST 2V, 11/01/2022, 12:55. FINDINGS: Surgical changes and devices: None. Lungs and pleura: Increased bronchovascular markings in bilateral hilar region are seen with mild bronchial wall thickening. No definite focal infiltrate. No pleural effusions or pneumothorax. Mediastinum: Mediastinal contours are normal. Heart size is normal. Bones and chest wall: No suspicious bony abnormalities. Soft tissues appear unremarkable. IMPRESSION: Finding is suggestive of reactive airway disease such as bronchitis or asthma versus viral illness. No definite focal infiltrate. No pleural effusion or pneumothorax. Dictated by: Bill Connelly M.D. on 02/13/2024 at 13:21 Approved by: Bill Connelly M.D. on 02/13/2024 at 13:28
== END ==
LOC: RAD 09:35
PROVIDERS: Family Provider Family Medicine; PCP Family Medicine; Referring Provider Family Medicine; Visit Provider Family Medicine
DX: J06.9 Acute upper respiratory infection, unspecified (principal)
CPT/HCPCS: 71046

== ENCOUNTER → 2024-09-01 16:13 | Outpatient (CLI) | payer OTHER, SELFPAY ==
[2022-10-09 18:26] VITALS: BMI 44.6
[2024-09-01 17:40] LABS: Add Manual Diff / Slide Review NO; Basophils Absolute Auto 100 /uL (0-100); Basophils Percent Auto 0.4 % (0-2); Eosinophils Absolute Auto 300 /uL (0-450); Eosinophils Percent Auto 2.5 % (2-4); Hematocrit 36.7 % (36-46); Hemoglobin 11.3 g/dL (12.0-16.0); Lymphocytes Absolute Auto 3300 /uL (1100-4500); Mean Corpuscular HGB Conc 30.8 % (30-36); Mean Corpuscular Hemoglobin 21.7 PG (26-34); Mean Corpuscular Volume 70.4 fL (80-100); Monocytes Absolute Auto 600 /uL (0-900); Monocytes Percent Auto 4.6 % (3-14); Neutrophils Absolute Auto 8300 /uL (1500-7000); Neutrophils Percent Auto 66.5 % (50-75); Platelet Count 393 X10^3/uL (150-400); Red Blood Cell Count 5.21 X10^6/uL (4.0-5.2); Red Cell Distribution Width 16.8 % (11.6-14.8); White Blood Cell Count 12.5 X10^3/uL (4.5-11.0)
[2024-09-01 17:50] LABS: Creatinine Urine Random 236.97 mg/dL; Hemoglobin A1C% w Est Avg Glu 8.9 % (4.0-6.0)
[2024-09-01 17:55] LABS: Microalbumin Urine Random 12.9 mg/dL (0-1.6)
[2024-09-01 18:08] LABS: Alanine Aminotransferase 35 IU/L (<35); Albumin 4.4 g/dL (3.5-5.0); Albumin Globulin Ratio 1.2 (1.0-2.8); Alkaline Phosphatase 88 U/L (38-126); Aspartate Aminotransferase 35 IU/L (14-36); BUN Creatinine Ratio 18.1 (6-22); Bilirubin Total 0.6 mg/dL (0.2-1.3); Blood Urea Nitrogen 13 mg/dL (7-17); Calcium 9.6 mg/dL (8.4-10.2); Carbon Dioxide 22 mmol/L (22-32); Chloride 100 mmol/L (98-107); Cholesterol 189 mg/dL (140-199); Estimated Glomerular Filt Rate > 60 mL/min (>60); Globulin 3.8 g/dL (1.7-4.1); Glucose 136 mg/dL (70-100); HDL Cholesterol 47 mg/dL (40-60); HEMOLYSIS < 15 (0-50); LDL Cholesterol Calculated 108 mg/dL (<100); Potassium 4.2 mmol/L (3.4-5.1); Sodium 135 mmol/L (137-145); Total Protein 8.2 g/dL (6.3-8.2); Triglycerides 170 mg/dL (35-150)
[2024-09-01 18:37] LABS: Thyroid Stimulating Hormone 1.18 uIU/mL (0.47-4.68)
== END ==
PROVIDERS: Family Provider Family Medicine; PCP Family Medicine; Referring Provider Family Medicine; Visit Provider Family Medicine
DX: Z00.00 Encounter for general adult medical examination without abnormal findings (principal); E78.00 Pure hypercholesterolemia, unspecified; E55.9 Vitamin D deficiency, unspecified; J45.41 Moderate persistent asthma with (acute) exacerbation; R71.8 Other abnormality of red blood cells; E11.9 Type 2 diabetes mellitus without complications; I10 Essential (primary) hypertension; D50.9 Iron deficiency anemia, unspecified
CPT/HCPCS: 36415; 80053; 80061; 82043; 82570; 83036; 84443; 85025